=== PATIENT | female | born 1945 | race Caucasian/White ===

== ENCOUNTER 2016-07-27 15:02 | Outpatient (CLI) | payer MEDICARE | END 2016-07-27 15:03 | disposition home or self-care (01) | DX: R07.89 Other chest pain (principal) ==

== ENCOUNTER 2016-07-29 12:15 | Outpatient (CLI) | payer MEDICARE | END 2016-07-29 12:16 | disposition home or self-care (01) | DX: R07.89 Other chest pain (principal) ==

== ENCOUNTER 2016-07-30 09:34 | Outpatient (CLI) | payer MEDICARE | END 2016-07-30 09:35 | disposition home or self-care (01) | DX: Z00.00 Encounter for general adult medical examination without abnormal findings (principal); J30.2 Other seasonal allergic rhinitis; J45.909 Unspecified asthma, uncomplicated; R07.89 Other chest pain; B19.20 Unspecified viral hepatitis C without hepatic coma; K76.0 Fatty (change of) liver, not elsewhere classified; K80.20 Calculus of gallbladder without cholecystitis without obstruction; M19.90 Unspecified osteoarthritis, unspecified site; M85.80 Other specified disorders of bone density and structure, unspecified site; R73.9 Hyperglycemia, unspecified ==

== ENCOUNTER 2016-08-11 14:05 | Outpatient (CLI) | payer MEDICARE | END 2016-08-11 14:06 | disposition home or self-care (01) | DX: R91.8 Other nonspecific abnormal finding of lung field (principal) ==

== ENCOUNTER 2016-08-17 12:44 | Outpatient (CLI) | payer MEDICARE ==
--- NOTE | 2016-08-18 14:35 | Mammography Report ---
REVISED: THIS REPORT WAS ORIGINALLY SIGNED ON 08/19/2016 @ 0941 ORDERS LINKED ON 08/25/2016 DIGITAL BILATERAL DIAGNOSTIC MAMMOGRAM: 08/17/2016 CLINICAL HISTORY: A 71-year-old female who is having left breast pain. The patient has no family history of breast cancer. She has had no breast surgeries. TECHNIQUE: Craniocaudad and oblique lateral views of each breast were obtained with Hologic full field digital mammography. To complement the exam, a mediolateral view of the left breast was obtained. COMPARISON: 08/11/2006, 06/16/2009, 06/10/2010, 09/01/2011, 06/05/2014. FINDINGS: The breast parenchyma is almost entirely composed of fat. No clusters of calcification are seen. No masses are noted. Because the patient is clinically symptomatic in the left breast, recommend a left breast ultrasound to complement the present exam. LEFT BREAST ULTRASOUND: TECHNIQUE: TECHNIQUE: Real-time scanning was performed with credit and collections representative static images obtained. FINDINGS: No significant abnormality is noted in the left breast in the area of concern within the 11 o'clock position. No mass or cyst is seen. IMPRESSION: THE BREASTS APPEAR RADIOGRAPHICALLY BENIGN. THE AREA OF CONCERN IN THE LEFT BREAST AT THE 11 O'CLOCK POSITION ALSO APPEARS NEGATIVE ON ULTRASOUND. BIRADS CATEGORY 1-NEGATIVE. RECOMMENDATION: ANNUAL BILATERAL SCREENING MAMMOGRAPHY. STANDARD QUALIFYING STATEMENTS 1. This examination was reviewed with the aid of Computer-Aided Detection (CAD). 2. A negative or benign imaging report should not delay biopsy if clinically suspicious findings are present. Consider surgical consultation if warranted. More than 5% of cancers are not identified by imaging. 3. Dense breasts may obscure an underlying neoplasm. JOB #: [id number] EXT JOB #: [id number] MADHU
== END 2016-08-17 12:45 | disposition home or self-care (01) ==
LOC: DI 12:44
PROVIDERS: ATTEND Internal Medicine
DX: N64.4 Mastodynia (principal)
CPT/HCPCS: 76642; G0204; 77066

== ENCOUNTER 2016-08-23 17:02 | Outpatient (CLI) | payer MEDICARE ==
[2016-09-07 10:36] LABS: TEST RESULT REPORT (())
== END 2016-08-23 17:03 | disposition home or self-care (01) ==
LOC: LAB 17:02
PROVIDERS: ATTEND Allergy & Immunology
DX: J45.40 Moderate persistent asthma, uncomplicated (principal)
CPT/HCPCS: 36415; 81599; 86001; 86606; 86609

== ENCOUNTER 2016-09-24 09:48 | Outpatient (CLI) | payer MEDICARE ==
--- NOTE | 2016-09-26 08:47 | CT Report ---
EXAM: CT CHEST HIGH-RESOLUTION WITHOUT CONTRAST EXAM DATE: 09/24/2016 11:39 AM. CLINICAL HISTORY: Asthma, chest wall pain. COMPARISON: 07/27/2016. 02/03/2006. 08/11/2016. TECHNIQUE: High-resolution CT was performed utilizing thin section imaging in supine and prone positi on. Multiaxial helical CT imaging was performed through the chest. IV contrast: None. Reconstructions : Coronal and sagittal. In accordance with CT protocol optimization, one or more of the following dose reduction techniques w ere utilized for this exam: automated exposure control, adjustment of mA and/or KV based on patient s ize, or use of iterative reconstructive technique. FINDINGS: The posterior subpleural and peripheral lingular and left lower lobe and right lower lobe g roundglass opacities have significantly improved. There is a new right middle lobe nodular opacity wi th groundglass component measuring 6 x 5 mm (image 37, series 7). This is new compared to 08/11/2016. No endobronchial obstruction. No subpleural reticulation. Minimal linear right basilar scar/atelectasis. Mild air trapping noted. N o bronchiolectasis or evidence for honeycombing. No significant bronchial dilatation is identified. Visualized thyroid gland is unremarkable. Heart size is normal. No enlarged mediastinal or hilar lymp h nodes. Thoracic aortic calcified plaque. Included portions of the liver, adrenals, spleen, pancreas, and kidneys are unremarkable. Calcified g allstones are seen. Degenerative changes are seen in the thoracic spine. No acute osseous abnormalities. IMPRESSION: 1. Improved bilateral ground-glass opacities compared to 08/11/2016. 2. New nodular ill-defined ground-glass nodular opacity in the right middle lobe measuring 6 x 5 mm c ompared to 08/11/2016. Findings may be infectious/inflammatory in etiology. Follow-up in 3-6 months r ecommended with chest CT to assess change. 3. Mild air trapping, findings which can be seen with small airways disease. 4. Cholelithiasis. [facility] Referring Provider Line: [phone] SITE ID: [id number]
== END 2016-09-24 09:49 | disposition home or self-care (01) ==
LOC: DI 09:48
PROVIDERS: ATTEND Allergy & Immunology
DX: R91.8 Other nonspecific abnormal finding of lung field (principal); K80.20 Calculus of gallbladder without cholecystitis without obstruction
CPT/HCPCS: 71250

== ENCOUNTER 2016-10-13 10:32 | Outpatient (CLI) | payer MEDICARE ==
--- NOTE | 2016-10-14 13:32 | XRAY Report ---
THREE VIEW BILATERAL FEET: 10/13/2016 CLINICAL INDICATION: Chronic foot pain. FINDINGS: AP, lateral, and oblique views of the bilateral feet demonstrate mild degenerative changes , with plantar and posterior calcaneal spurring. There is no evidence of acute fracture or dislocatio n. No radiopaque foreign body is seen in the soft tissues. IMPRESSION: MILD OSTEOARTHRITIS. NO EVIDENCE OF ACUTE FRACTURE. JOB #: [id number] EXT JOB #:[id number]
== END 2016-10-13 10:33 | disposition home or self-care (01) ==
LOC: DI 10:32
PROVIDERS: ATTEND Podiatrist
DX: M19.072 Primary osteoarthritis, left ankle and foot (principal); M19.071 Primary osteoarthritis, right ankle and foot

== ENCOUNTER 2016-12-30 11:39 | Outpatient (CLI) | payer MEDICARE ==
--- NOTE | 2016-12-30 13:32 | CT Report ---
CT OF THE CHEST WITHOUT CONTRAST: 12/30/2016 CLINICAL INDICATION: Pulmonary eosinophilia. TECHNIQUE: Axial 1 mm prone inspiratory, supine inspiratory, supine expiratory images of the lungs we re obtained without contrast, as well as a conventional noncontrast chest CT. COMPARISON: 09/24/2016, 08/11/2016. FINDINGS: The heart and great vessels demonstrate minimal atherosclerotic calcification. No hilar or mediastinal lymphadenopathy is present. The lungs demonstrate bronchiectasis, with minimal periphera l air trapping on expiratory images. The previously seen ground-glass opacities have resolved. No int erstitial lung disease is appreciated. No effusion or pneumothorax is present. The osseous structures demonstrate degenerative changes. Limited evaluation of upper abdominal structures demonstrates norm al adrenal glands. Cholelithiasis is noted. IMPRESSION: RESOLUTION OF PREVIOUSLY SEEN GROUND-GLASS OPACITIES. BRONCHIECTASIS, WITH MILD PERIPHER AL AIR TRAPPING ON EXPIRATORY IMAGING. CHOLELITHIASIS. In accordance with CT protocol optimization, one or more of the following dose reduction techniques w ere utilized for this exam: automated exposure control, adjustment of mA and/or KV based on patient size, or use of iterative reconstructive technique. JOB #: [id number] EXT JOB #:[id number]
== END 2016-12-30 11:40 | disposition home or self-care (01) ==
LOC: DI 11:39
PROVIDERS: ATTEND Internal Medicine Critical Care Medicine
DX: J47.9 Bronchiectasis, uncomplicated (principal); K80.20 Calculus of gallbladder without cholecystitis without obstruction
CPT/HCPCS: 71250

== ENCOUNTER 2017-02-01 11:52 | Outpatient (CLI) | payer MEDICARE ==
[2017-02-02 15:07] LABS: TEST RESULT REPORT
== END 2017-02-01 11:53 | disposition home or self-care (01) ==
LOC: LAB 11:52
PROVIDERS: ATTEND Allergy & Immunology
DX: J45.40 Moderate persistent asthma, uncomplicated (principal)
CPT/HCPCS: 36415; 81599; 82785; 86003

== ENCOUNTER 2017-06-19 11:42 | Outpatient (CLI) | payer MEDICARE ==
[2017-06-19 12:06] LABS: BASOPHILS # (AUTO) 0.1 10^3/uL (0.0-0.1); BASOPHILS % (AUTO) 0.8 %; EOSINOPHILS # (AUTO) 0.2 10^3/uL (0.0-0.7); EOSINOPHILS % (AUTO) 2.1 %; HGB - HEMOGLOBIN 15.6 g/dL (12.0-16.0); LYMPHOCYTES # (AUTO) 1.3 10^3/uL (1.5-3.5); MEAN CORPUSCULAR HEMOGLOBIN 31.4 pg (27.0-31.0); MEAN CORPUSCULAR HGB CONC 34.3 g/dL (32.0-36.0); MEAN CORPUSCULAR VOLUME 91.6 fL (81.0-99.0); MEAN PLATELET VOLUME 8.2 fL (7.9-10.8); MONOCYTES % (AUTO) 12.6 %; NEUTROPHILS # (AUTO) 5.5 10^3/uL (1.5-6.6); NEUTROPHILS % (AUTO) 68.5 %; PLT - PLATELET COUNT 230 10^3/uL (130-450); RED BLOOD COUNT 4.96 10^6/uL (4.20-5.40); RED CELL DISTRIBUTION WIDTH 13.3 % (12.0-15.0)
[2017-06-19 12:23] LABS: PT - PROTHROMBIN TIME 11.5 secs (9.9-12.6)
[2017-06-19 12:28] LABS: ALBUMIN 3.8 g/dL (3.2-5.5); BILIRUBIN,DIRECT 0.2 mg/dL (0.1-0.5); BILIRUBIN,TOTAL 0.8 mg/dL (0.2-1.0); TOTAL PROTEIN 7.4 g/dL (6.7-8.2)
== END 2017-06-19 11:43 | disposition home or self-care (01) ==
LOC: LAB 11:42
PROVIDERS: ATTEND Internal Medicine
DX: B18.2 Chronic viral hepatitis C (principal); R58 Hemorrhage, not elsewhere classified
CPT/HCPCS: 36415; 80076; 82105; 85025; 85610; 85730

== ENCOUNTER 2017-06-28 09:04 | Outpatient (CLI) | payer MEDICARE ==
--- NOTE | 2017-06-28 12:45 | Ultrasound Report ---
ABDOMEN ULTRASOUND LIMITED: 06/28/2017 HISTORY: Hepatitis C, elevated AFP. COMPARISON: Abdomen ultrasound 01/12/2016. TECHNIQUE: Real-time scanning by the operations systems specialist with saved static images reviewed. FINDINGS: LIVER: Increased echogenicity with normal directional portovenous blood flow. Length: 16.1 cm. No focal pathology. GALLBLADDER: Stones. Wall thickness 1.5 mm. BILIARY TREE: Common bile duct 3.8 mm. RIGHT KIDNEY: 10.4 cm longitudinally. No hydronephrosis. Free fluid: None. IMPRESSION: CHOLELITHIASIS, WITHOUT CHOLECYSTITIS. INCREASED HEPATIC ECHOGENICITY CONSISTENT WITH FATTY INFILTRATION WITHOUT FOCAL LESIONS. TD: 06/28/2017 12:43
== END 2017-06-28 09:05 | disposition home or self-care (01) ==
LOC: DI 09:04
PROVIDERS: ATTEND Internal Medicine
DX: B19.20 Unspecified viral hepatitis C without hepatic coma (principal); K80.20 Calculus of gallbladder without cholecystitis without obstruction
CPT/HCPCS: 76705

== ENCOUNTER 2017-07-26 16:21 | Outpatient (CLI) | payer MEDICARE ==
--- NOTE | 2017-07-26 16:48 | XRAY Report ---
EXAM: CHEST RADIOGRAPHY EXAM DATE: 07/26/2017 04:34 PM. CLINICAL HISTORY: COUGH. COMPARISON: 07/27/2016. TECHNIQUE: 2 views. FINDINGS: Lungs/Pleura: No localized infiltrate, consolidation, effusion, or pneumothorax. Mediastinum: Heart and mediastinal contours are unremarkable. Other: Osteopenia, degenerative changes. IMPRESSION: No acute disease. [facility] Referring Provider Line: [phone] SITE ID: [id number]
[2017-07-26 17:14] LABS: BILIRUBIN,URINE NEGATIVE (NEGATIVE); GLUCOSE, URINE (UA) NEGATIVE (NEGATIVE); KETONES,URINE (UA) NEGATIVE (NEGATIVE); LEUKOCYTE ESTERASE, URINE NEGATIVE (NEGATIVE); NITRITE,URINE NEGATIVE (NEGATIVE); OCCULT BLOOD,URINE NEGATIVE (NEGATIVE); PROTEIN,URINE NEGATIVE (NEGATIVE); UROBILINOGEN,URINE 0.2 (NORMAL) E.U./dL (NORMAL)
[2017-07-26 17:16] LABS: CLARITY,URINE CLEAR (CLEAR)
== END 2017-07-26 16:22 | disposition home or self-care (01) ==
LOC: DI 16:21
PROVIDERS: ATTEND Internal Medicine
DX: R05 Cough (principal); R50.9 Fever, unspecified; R53.83 Other fatigue
CPT/HCPCS: 36415; 71046; 81001; 81003; 86308; 87040; 87086; 87275; 87276

== ENCOUNTER 2017-08-02 10:53 | Outpatient (CLI) | payer MEDICARE | END 2017-08-02 10:54 | disposition home or self-care (01) | LOC: LAB 10:53 | PROVIDERS: ATTEND Internal Medicine | DX: R53.83 Other fatigue (principal); M25.50 Pain in unspecified joint | CPT/HCPCS: 36415; 81599; 86617; 86618 ==

== ENCOUNTER 2018-02-19 10:55 | Outpatient (CLI) | payer MEDICARE ==
--- NOTE | 2018-02-20 08:55 | Mammography Report ---
Reason: SCREENING MAMMO Procedure Date: 02/19/2018 Accession Number: [id number] / [id number] Procedure: SHILOH - Screening Mammo w/Jhon CPT Code: FULL RESULT: EXAM: Screening Mammo w/Jhon DATE: 02/19/2018 11:53 AM CLINICAL HISTORY: 72 year-old nulliparous female presents for screening. TECHNIQUE: Bilateral CC and MLO views were obtained. COMPARISON: 08/17/2016, 06/05/2014, 09/01/2011, 06/10/2010. FINDINGS: The breasts demonstrate diffuse fatty replacement bilaterally. Coarse left breast calcifications are again seen, typically benign. No suspicious masses, clustered microcalcifications, or regions of architectural distortion are identified. IMPRESSION: Benign findings RECOMMENDATION: Routine annual screening unless otherwise clinically indicated. BIRADS CATEGORY 2: Benign findings STANDARD QUALIFYING STATEMENTS: 1. This examination was not reviewed with the aid of Computer-Aided Detection (CAD). 2. A negative or benign imaging report should not delay biopsy if clinically suspicious findings are present. Consider surgical consultation if warranted. More than 5% of cancers are not identified by imaging. 3. Dense breasts may obscure an underlying neoplasm. 4. This examination was reviewed with the aid of 3D breast imaging (tomosynthesis).
== END 2018-02-19 10:56 | disposition home or self-care (01) ==
LOC: DI 10:55
PROVIDERS: ATTEND Internal Medicine
DX: Z12.31 Encounter for screening mammogram for malignant neoplasm of breast (principal)
CPT/HCPCS: 77063; 77067

== ENCOUNTER 2018-07-10 13:53 | Outpatient (CLI) | payer MEDICARE, OTHER ==
--- NOTE | 2018-07-10 14:22 | XRAY Report ---
Reason: BONY ENLARG MEDIAL SIDE RT CALCANEUS Procedure Date: 07/10/2018 Accession Number: [id number] / [id number] Procedure: XR - Calcaneus RT CPT Code: FULL RESULT: EXAM: RIGHT CALCANEUS RADIOGRAPHY EXAM DATE: 07/10/2018 02:00 PM. CLINICAL HISTORY: Palpable bony mass right calcaneus. COMPARISON: ANKLE 3 VIEW LT 08/07/2012 2:48 PM. TECHNIQUE: 2 views. FINDINGS: Bones: No acute fracture. Large posterior calcaneal bone spur. Moderate plantar calcaneal bone spur. Joints: Normal. No subluxations. Soft Tissues: Normal. No soft tissue swelling. IMPRESSION: No acute abnormality. Large calcaneal bone spurs as described above. [facility]
== END 2018-07-10 13:54 | disposition home or self-care (01) ==
LOC: DI 13:53
PROVIDERS: ATTEND Podiatrist
DX: M77.31 Calcaneal spur, right foot (principal)

== ENCOUNTER 2018-07-27 20:39 | Emergency (ER) | payer MEDICARE, OTHER ==
[2018-07-27 20:55] LABS: BILIRUBIN,URINE NEGATIVE (NEGATIVE); GLUCOSE, URINE (UA) NEGATIVE (NEGATIVE); KETONES,URINE (UA) NEGATIVE (NEGATIVE); LEUKOCYTE ESTERASE, URINE TRACE (NEGATIVE); NITRITE,URINE NEGATIVE (NEGATIVE); OCCULT BLOOD,URINE NEGATIVE (NEGATIVE); PH,URINE 6.5 PH (5.0-7.5); PROTEIN,URINE NEGATIVE (NEGATIVE); UROBILINOGEN,URINE 0.2 (NORMAL) E.U./dL (NORMAL)
[2018-07-27 20:56] LABS: CLARITY,URINE CLEAR (CLEAR)
--- NOTE | 2018-07-27 20:57 | ED Physician Documentation ---
PD HPI FEMALE - Stated complaint Stated Complaint: FEM - Chief complaint Chief Complaint: UTI - History obtained from History obtained from: Patient - History of Present Illness Timing - onset: How many days ago (1) Timing - duration: Days (1) Timing - details: Abrupt onset, Still present Associated symptoms: Dysuria, Urinary frequency. No: Fever, Back pain, Vaginal bleeding, Vaginal discharge, Genital sore/lesion, Hematuria Contributing factors: Sexually active. No: Exposed to STD Similar symptoms before: Diagnosis (UTIs) Recently seen: Not recently seen Review of Systems Constitutional: denies: Fever, Chills : reports: Dysuria, Frequency. denies: Hematuria, Discharge Skin: denies: Rash PD PAST MEDICAL HISTORY - Past Medical History Respiratory: Asthma Musculoskeletal: Osteoarthritis, Osteoporosis - Past Surgical History Past Surgical History: Yes Ortho: Arthroscopic surgery - Present Medications Home Medications: Ambulatory Orders Medication Instructions Recorded Confirmed Albuterol [Ventolin Hfa] 2 puffs INH Q4H PRN 08/07/12 08/07/12 Azelastine HCl [Astepro] 205.5 mcg NS BID 08/07/12 08/07/12 Fluticasone Furoate [Veramyst] 1 spray NS BID 08/07/12 08/07/12 Fluticasone/Salmeterol 250/50 1 puffs INH BID 08/07/12 08/07/12 [Advair 250 Mcg/50 Mcg] Sulfamethox/Trimeth 800/160 1 each PO BID #14 tablet 07/27/18 [Bactrim Ds 800/160] - Allergies Allergies/Adverse Reactions: Allergies Allergy/AdvReac Type Severity Reaction Status Date / Time Penicillins Allergy Rash Verified 08/07/12 14:54 - Social History Does the pt smoke?: No Smoking Status: Never smoker Does the pt drink ETOH?: Yes Does the pt have substance abuse?: No PD ED PE NORMAL - Vitals Vital signs reviewed: Yes - General General: Alert and oriented X 3, Well developed/nourished - Female Female : Deferred - Back Back: No CVA TTP - Derm Derm: Normal color, Warm and dry Results - Vitals Vitals: Vital Signs - 24 hr 07/27/18 07/27/18 20:42 21:57 Temperature 36.6 C 36.2 C L Heart Rate 109 H 95 Respiratory 16 16 Rate Blood Pressure 144/102 H 155/92 H O2 Saturation 97 97 Oxygen O2 Source Room air - Labs Labs: Microbiology 07/27/18 20:49 Urine Culture - Preliminary Urine,Clean Catch Escherichia Coli Laboratory Tests 07/27/18 20:49 Urine Color YELLOW Urine Clarity CLEAR Urine pH 6.5 Ur Specific Lawrence <=1.005 Urine Protein NEGATIVE Urine Glucose (UA) NEGATIVE Urine Ketones NEGATIVE Urine Occult Blood NEGATIVE Urine Nitrite NEGATIVE Urine Bilirubin NEGATIVE Urine Urobilinogen 0.2 (NORMAL) Ur Leukocyte Esterase TRACE H Urine RBC None Seen Urine WBC >25 H Urine WBC Clumps PRESENT Ur Squamous Epith Cells NONE SEEN Urine Bacteria Rare Ur Microscopic Review INDICATED Urine Culture Comments INDICATED PD MEDICAL DECISION MAKING - ED course Complexity details: considered differential, d/w patient Departure - Departure Disposition: 01 Home, Self Care Clinical Impression: Urinary tract infection Qualifiers: Urinary tract infection type: acute cystitis Hematuria presence: without hematuria Qualified Code(s): N30.00 - Acute cystitis without hematuria Condition: Stable Record reviewed to determine appropriate education?: Yes Instructions: ED UTI Cystitis Female Follow-Up: Jennifer Jackson MD [Primary Care Provider] - Prescriptions: Sulfamethox/Trimeth 800/160 [Bactrim Ds 800/160] 1 each PO BID #14 tablet Comments: Stay well-hydrated. Tylenol or Anti-inflammatories if needed for pains or discomfort. Use phenazopyridine if needed for discomfort as well. Bactrim antibiotic twice daily as directed for the infection. Recheck if not improving over the next few days and return sooner if worse. Discharge Date/Time: 07/27/18 22:07
[2018-07-27 21:04] LABS: BACTERIA,URINE Rare /HPF (None Seen); RBC,URINE None Seen /HPF (0-5); SQUAMOUS EPITHELIAL CELL,UR NONE SEEN (<= Few); WBC CLUMPS,URINE PRESENT
[2018-07-27] MEDS ORDERED: PHENAZOPYRIDINE 100 MG TABLET PO STA (21:25)
[2018-07-27] MEDS ORDERED: NAPROXEN 250 MG TABLET PO STA (21:25)
[2018-07-27] MEDS ORDERED: SULFAMETH/TRIMETH DS 800/160 MG TABLET PO STA (21:25)
[2018-07-27 21:57] VITALS: BP 155/92
== END 2018-07-27 22:07 | disposition home or self-care (01) ==
LOC: ED 20:39
DX: N30.00 Acute cystitis without hematuria (principal)
CPT/HCPCS: 81001; 87086; 87181; 99283; A9270; 81003

== ENCOUNTER 2018-09-01 11:59 | Outpatient (CLI) | payer MEDICARE, OTHER ==
[~2018-09-01 11:59] MED LIST: GADOBUTROL 10 MMOL/10 ML VIAL ONE
[2018-09-01] MEDS: GADOBUTROL 10 MMOL/10 ML VIAL IVP ONE (12:56)
--- NOTE | 2018-09-01 14:57 | MRI Report ---
Reason: PAINFUL SOFT LESION MEDIAL CALCANEUS PAINFULL AC Procedure Date: 09/01/2018 Accession Number: [id number] / [id number] Procedure: MRI - Foot RT W/WO CPT Code: FULL RESULT: EXAM: RIGHT ANKLE/HINDFOOT MRI WITHOUT AND WITH CONTRAST EXAM DATE: 09/01/2018 01:33 PM. CLINICAL HISTORY: PAINFUL SOFT LESION MEDIAL CALCANEUS PAINFUL AC. COMPARISON: CALCANEUS RT 07/10/2018 2:00 PM. TECHNIQUE: Multiplanar, multisequence T1-weighted and fluid-sensitive sequences of the ankle before and after administration of intravenous contrast. IV contrast: . Other: None. FINDINGS: Bones: Marrow edema in the calcaneal tuberosity associated with small Tito's deformity is likely secondary to Achilles tendinopathy which will be discussed further below. Osseous structures elsewhere are unremarkable. No bony lesion. Articular Cartilage: Unremarkable. Ligaments: The anterior and posterior tibiofibular, anterior and posterior talofibular, and calcaneofibular ligaments are intact. The deep and superficial deltoid and spring ligaments are intact. Anterior Tendons: The tibialis anterior, extensor hallucis longus, and extensor digitorum longus tendons are unremarkable. Medial Tendons: The tibialis posterior, flexor digitorum longus, and flexor hallucis longus tendons are unremarkable. Lateral Tendons: There is a longitudinal split tear of the peroneus brevis tendon along the posterior margin of and immediately distal to the lateral malleolus. The peroneus longus is intact. Achilles Tendon: The distal Achilles tendon is diffusely thickened and heterogeneously increased in signal, particularly along its medial margin, and there is mild overlying soft tissue edema and a large underlying retrocalcaneal bursal effusion consistent with retrocalcaneal bursitis. Traction osteophytes extend into the substance of the distal tendon. The intrinsic Achilles tendon signal abnormality is consistent with a combination of tendinosis and partial thickness tear along the deep surface of the tendon and the other findings are likely inflammatory secondary to the tendinopathy. No high-grade tear is present and the more proximal portion of the tendon is normal. Musculature: No edema or fatty atrophy. Other: No effusions or synovitis. The contents of the sinus tarsi and tarsal tunnel are unremarkable. No plantar fasciitis. The subcutaneous tissues are unremarkable. No abscess or cellulitis. IMPRESSION: 1. No evidence of neoplasm. 2. 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 There is associated retrocalcaneal bursitis, Tito's deformity, and reactive marrow edema in the calcaneal tuberosity. 3. Longitudinal split tear of the peroneus brevis tendon along the posterior margin of and immediately distal to the lateral malleolus. [facility]
== END 2018-09-01 12:00 | disposition home or self-care (01) ==
LOC: DI 11:59
PROVIDERS: ATTEND Podiatrist
DX: M77.51 Other enthesopathy of right foot and ankle (principal); M92.61 Juvenile osteochondrosis of tarsus, right ankle; S86.311A Strain of muscle(s) and tendon(s) of peroneal muscle group at lower leg level, right leg, initial encounter
CPT/HCPCS: 73720; A9585

== ENCOUNTER 2019-01-03 09:27 | Outpatient (CLI) | payer MEDICARE, OTHER ==
--- NOTE | 2019-01-05 21:28 | Ultrasound Report ---
Reason: EPIGASTRIC PAIN, NAUSEA, HX OF GALLSTONES Procedure Date: 01/03/2019 Accession Number: [id number] / [id number] Procedure: US - Abdomen Limited CPT Code: FULL RESULT: EXAM: ABDOMEN LIMITED EXAM DATE: 01/03/2019 10:35 AM INDICATION: Epigastric pain, nausea, history of gallstones. COMPARISONS: ABDOMEN LIMITED 06/28/2017 9:32 AM. TECHNIQUE: Real-time scanning was performed with static images obtained. FINDINGS: Liver: Liver parenchyma is heterogeneous and markedly hyperechoic. No discrete liver masses or intrahepatic bile duct dilation. However, evaluation for masses is limited secondary to the echogenicity. Right liver measures 16.5 cm. Main portal vein flow: Hepatopetal. Gallbladder: Gallstone. Borderline gallbladder wall thickening. Per report, the patient had right upper quadrant pain with imaging. No pericholecystic fluid. Biliary System: CBD measures 6.5 mm. No intrahepatic or extrahepatic ductal dilatation. Pancreas: Not well evaluated. Right kidney: 10.5 cm. No hydronephrosis. Abdominal aorta and IVC: Normal. Other: None. IMPRESSION: 1. Gallstone. Borderline gallbladder wall thickening. Per report, the patient had right upper quadrant pain during imaging. No pericholecystic fluid. If clinical suspicion persists for acute cholecystitis, recommend nuclear medicine hepatobiliary study. 2. Normal common bile duct. 3. Echogenic fatty liver. No mass. [facility]
== END 2019-01-03 09:28 | disposition home or self-care (01) ==
LOC: DI 09:27
PROVIDERS: ATTEND Internal Medicine
DX: R10.13 Epigastric pain (principal); R11.0 Nausea; K76.0 Fatty (change of) liver, not elsewhere classified
CPT/HCPCS: 76705

== ENCOUNTER 2019-02-07 14:55 | Outpatient (CLI) | payer MEDICARE, OTHER ==
--- NOTE | 2019-02-08 14:05 | Mammography Report ---
Reason: ROUTINE MAMMO Procedure Date: 02/07/2019 Accession Number: [id number] / [id number] Procedure: SHILOH - Screening Mammo w/Jhon CPT Code: Final Report FULL RESULT: EXAM: Screening Mammo w/Jhon DATE: 02/07/2019 3:23 PM CLINICAL HISTORY: Routine screening. No reported personal or family history of breast cancer. TECHNIQUE: (B) - Bilateral CC and MLO views were obtained. COMPARISON: 02/19/2018 through 06/05/2014. PARENCHYMAL PATTERN: (A) - The breasts demonstrate scattered fibroglandular densities bilaterally. FINDINGS: Bilateral breasts: There are no suspicious masses, calcifications, or areas of distortion. IMPRESSION: Negative examination. BI-RADS category 1. RECOMMENDATION: (ANNUAL) - Recommend routine annual screening mammography. BI-RADS CATEGORY: (1) - Negative. STANDARD QUALIFYING STATEMENTS: 1. This examination was not reviewed with the aid of Computer-Aided Detection (CAD). 2. A negative or benign imaging report should not preclude biopsy if clinically suspicious findings are present. 3. Dense breasts may obscure an underlying neoplasm. 4. This examination was reviewed with the aid of 3D breast imaging (tomosynthesis).
== END 2019-02-07 14:56 | disposition home or self-care (01) ==
LOC: DI 14:55
PROVIDERS: ATTEND Internal Medicine
DX: Z12.31 Encounter for screening mammogram for malignant neoplasm of breast (principal)
CPT/HCPCS: 77063; 77067

== ENCOUNTER 2019-03-09 10:00 | Outpatient (CLI) | payer MEDICARE, OTHER ==
--- NOTE | 2019-03-10 14:13 | MRI Report ---
Reason: RE-INJURY TO PERONEAL TENDONS AND ACHILLES TENDON Procedure Date: 03/09/2019 Accession Number: [id number] / [id number] Procedure: MRI - Ankle RT W/O CPT Code: Final Report FULL RESULT: EXAM: RIGHT ANKLE/HINDFOOT MRI WITHOUT CONTRAST EXAM DATE: 03/09/2019 11:15 AM. CLINICAL HISTORY: Re-injury to peroneal tendons and achilles tendon. Posterior ankle pain and instability. COMPARISON: 09/01/2018 MRI, radiograph 07/10/2018. TECHNIQUE: Multiplanar, multisequence T1-weighted and fluid-sensitive sequences of the ankle/hindfoot without contrast. Other: None. FINDINGS: Bones: No fractures. Some mild marrow edema is in the posterior portion of the calcaneus. Articular Cartilage: Unremarkable. Ligaments: The anterior and posterior tibiofibular, anterior and posterior talofibular, and calcaneofibular ligaments are intact. The deep and superficial deltoid and spring ligaments are intact. Anterior Tendons: The tibialis anterior, extensor hallucis longus, and extensor digitorum longus tendons are unremarkable. Medial Tendons: The tibialis posterior, flexor digitorum longus, and flexor hallucis longus tendons are unremarkable. Lateral Tendons: The small peroneus brevis longitudinal tear near the distal lateral malleolus is unchanged. The peroneus longus tendon is normal. Achilles Tendon: The distal Achilles tendon is severely thickened with tear of the anterior third of the tendon. Retraction is on the order of 7 mm. There is edema in the distal tendon with prominent calcification. The adjacent retrocalcaneal bursitis has decreased. Musculature: No edema or fatty atrophy. Other: No effusions. The contents of the sinus tarsi and tarsal tunnel are unremarkable. No plantar fasciitis. The subcutaneous tissues are unremarkable. IMPRESSION: 1. Unchanged focal longitudinal tear of the peroneus brevis tendon. 2. The Achilles calcific tendinosis and partial tearing is unchanged. The adjacent retrocalcaneal bursitis and reactive marrow edema in the calcaneus has improved. [facility]
== END 2019-03-09 10:01 | disposition home or self-care (01) ==
LOC: DI 10:00
PROVIDERS: ATTEND Podiatrist
DX: S96.811A Strain of other specified muscles and tendons at ankle and foot level, right foot, initial encounter (principal); M76.61 Achilles tendinitis, right leg

== ENCOUNTER 2019-09-06 13:16 | Outpatient (CLI) | payer OTHER, MEDICARE ==
[2019-09-06 13:31] LABS: HGB - HEMOGLOBIN 15.1 g/dL (12.0-16.0); MEAN CORPUSCULAR HEMOGLOBIN 30.7 pg (27.0-31.0); MEAN CORPUSCULAR HGB CONC 33.6 g/dL (32.0-36.0); MEAN CORPUSCULAR VOLUME 91.3 fL (81.0-99.0); RED BLOOD COUNT 4.92 10^6/uL (4.20-5.40); WHITE BLOOD COUNT 7.4 x10^3/uL (4.8-10.8)
[2019-09-06 13:45] LABS: ALBUMIN 3.8 g/dL (3.2-5.5); BILIRUBIN,TOTAL 0.8 mg/dL (0.2-1.0); CALCIUM 9.3 mg/dL (8.5-10.3); CREATININE 0.7 mg/dL (0.4-1.0); TOTAL PROTEIN 7.6 g/dL (6.7-8.2)
== END 2019-09-06 13:17 | disposition home or self-care (01) ==
LOC: LAB 13:16
PROVIDERS: ATTEND Physician Assistant Medical
DX: B18.2 Chronic viral hepatitis C (principal)
CPT/HCPCS: 36415; 80053; 85027

== ENCOUNTER 2020-01-18 11:59 | Outpatient (CLI) | payer OTHER, MEDICARE | END 2020-01-18 12:00 | disposition home or self-care (01) | LOC: LAB 11:59 | PROVIDERS: ATTEND Ophthalmology | DX: Z20.828 Contact with and (suspected) exposure to other viral communicable diseases (principal) ==

== ENCOUNTER 2020-08-20 15:40 | Outpatient (CLI) | payer OTHER, MEDICARE ==
--- NOTE | 2020-08-20 16:22 | XRAY Report ---
PROCEDURE: Chest 4 Views X-Ray INDICATIONS: ASTHAM, MODERATE PERSISTENT, W/ EXACERBATION TECHNIQUE: 4 views of the chest were acquired. COMPARISON: None. FINDINGS: Surgical changes and devices: None. Lungs and pleura: No pleural effusions or pneumothorax. Lungs are clear. Mediastinum: Mediastinal contours are normal. Heart size is normal. Bones and chest wall: No suspicious bony abnormalities. Soft tissues appear unremarkable. IMPRESSION: No acute process. Reviewed by: Holli Tam MD on 08/20/2020 4:20 PM PDT Approved by: Holli Tam MD on 08/20/2020 4:20 PM PDT Station ID: [id number]
== END 2020-08-20 15:41 | disposition home or self-care (01) ==
LOC: DI 15:40
DX: J45.41 Moderate persistent asthma with (acute) exacerbation (principal)

== ENCOUNTER 2020-08-24 15:35 | Emergency (ER) | payer OTHER, MEDICARE ==
--- OUTSIDE RECORDS SUMMARY | 2020-08-24 15:38 | EXTERNAL MEDICAL SUMMARY RPT | Continuity of Care Document ---
:1945 Demographics Phone Unavailable Preferred Language Unknown Marital Status Unknown Hoahaoism Affiliation Unknown Race Unknown Ethnic Group Unknown Author Organization [place] Address [address] [phone] Phone Allergies Encounters Medications Problems date description facility [phone] [facility] Results
--- OUTSIDE RECORDS SUMMARY | 2020-08-24 16:06 | EXTERNAL MEDICAL SUMMARY RPT | Continuity of Care Document ---
:1945 Demographics Phone Unavailable Preferred Language Unknown Marital Status Unknown Sikhism Affiliation Unknown Race Unknown Ethnic Group Unknown Author Organization [facility] Address [address] [phone] Phone Allergies Encounters Medications Problems date description facility [id number] [facility] [employer] Results
[2020-08-24] MEDS ORDERED: oxyCODONE 5 MG TABLET PO STA (16:12)
[2020-08-24] MEDS ORDERED: ONDANSETRON ODT 4 MG TABLET TL STA (16:12)
--- NOTE | 2020-08-24 16:24 | ED Physician Documentation ---
History of Present Illness - Stated complaint Stated Complaint: FALL - Chief complaint Chief Complaint: Laceration - History obtained from History obtained from: Patient, Family - History of Present Illness Timing: Today Pain level max: 8 Pain level now: 4 - Additonal information Additional information: 75-year-old female presents to the emergency department after a trip and fall earlier today. She sustained skin tears to the bilateral knees, left sheikh and left elbow. Bandaged with Steri-Strips at home. Tetanus shot is up-to-date. No head, neck, back pain. Has chronic left knee pain. Took a dose of oxycodone prior to arrival. 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 : None HEENT: None Psych: None Musculoskeletal: Osteoarthritis, Osteoporosis Derm: None - Past Surgical History Past Surgical History: Yes Ortho: Arthroscopic surgery - Present Medications Home Medications: Ambulatory Orders Medication Instructions Recorded Confirmed Albuterol [Ventolin Hfa] 2 puffs INH Q4H PRN 08/07/12 08/24/20 Azelastine HCl [Astepro] 205.5 mcg NS BID 08/07/12 08/24/20 Fluticasone Furoate [Veramyst] 1 spray NS BID 08/07/12 08/24/20 Acetaminophen [Tylenol] 650 mg PO Q6H PRN 08/24/20 08/24/20 Albuterol 2.5 mg INH Q6HR PRN 08/24/20 08/24/20 Cholecalciferol (Vitamin D3) 2,000 unit PO DAILY 08/24/20 08/24/20 [Vitamin D3] Doxycycline Hyclate 100 mg PO BID #20 08/24/20 Famotidine [Pepcid] 20 mg PO DAILY 08/24/20 08/24/20 Fluticasone/Salmeterol [Advair 1 each IH BID 08/24/20 08/24/20 500-50 Diskus] Ibuprofen 400 mg PO Q6HR PRN 08/24/20 08/24/20 Lactobacillus Acidophilus 1 each PO DAILY 08/24/20 08/24/20 [Probiotic Acidophilus] Montelukast [Singulair] 10 mg PO QPM 08/24/20 08/24/20 Multivitamin/Iron/Folic Acid 1 each PO DAILY 08/24/20 08/24/20 [Centrum Women Tablet] Ondansetron Odt [Zofran] 4 mg TL Q6H PRN #20 tablet 08/24/20 Tiotropium [place] [Spiriva 2 spray IN DAILY 08/24/20 08/24/20 Respimat] - Allergies Allergies/Adverse Reactions: Allergies Allergy/AdvReac Type Severity Reaction Status Date / Time cephalexin [From Keflex] Allergy Anaphylaxis Verified 08/24/20 15:41 levofloxacin Allergy Cramps Verified 08/24/20 15:41 Penicillins Allergy Rash Verified 08/24/20 15:41 - Social History Does the pt smoke?: No Smoking Status: Never smoker Does the pt drink ETOH?: Yes Does the pt have substance abuse?: No - Immunizations Immunizations are current?: Yes PD ED PE NORMAL - Vitals Vital signs reviewed: Yes - General General: Alert and oriented X 3, No acute distress - HEENT HEENT: Atraumatic, PERRL, Moist mucous membranes - Neck Neck: Supple, no meningeal sign, No bony TTP - Cardiac Cardiac: RRR - Respiratory Respiratory: No respiratory distress, Clear bilaterally - Derm Derm: Warm and dry - Neuro Neuro: Alert and oriented X 3, combination presser 2-12 intact, No motor deficit, No sensory deficit, Normal speech Eye Opening: Spontaneous Motor: Obeys Commands Verbal: Oriented GCS Score: 15 - Psych Psych: Normal mood, Normal affect - Free text exam Free text exam: Several large skin tears, the first is on the lateral aspect of the left elbow, 8 x 4 cm. The second Is over the right knee, approximately 5 x 3 cm. The left knee has a 5 x 3 cm skin avulsion as well. The left anterior tibia has approximately 12 x 5 cm skin avulsion. Results - Vitals Vitals: Vital Signs - 24 hr 08/24/20 08/24/20 15:41 18:12 Temperature 36.5 C 37.0 C Heart Rate 68 58 L Respiratory 16 18 Rate Blood Pressure 181/78 H 156/65 H O2 Saturation 96 98 Oxygen O2 Source Room air PD MEDICAL DECISION MAKING - ED course Complexity details: reviewed results, re-evaluated patient, considered differential, d/w patient ED course: Let was applied topically to the wounds. These were then cleansed and Mepitel was applied to hold the wound edges together. There is no suturable areas. She is allergic to cephalexin, therefore we will place on doxycycline. She may need wound care. Wound care instructions given at bedside. Her is a RN. We will prescribe antibiotics for home as well. Patient and family counseled regarding signs and symptoms for which I believe and urgent re-evaluation would be necessary. Patient with good understanding of and agreement to plan and is comfortable going home at this time This document was made in part using voice recognition software. While efforts are made to proofread this document, sound alike and grammatical errors may occur. Departure - Departure Disposition: 01 Home, Self Care Clinical Impression: Skin tear Condition: Good Instructions: ED Laceration All Follow-Up: Jennifer Jackson MD [Primary Care Provider] - Within 1 week Prescriptions: Doxycycline Hyclate 100 mg PO BID #20 Ondansetron Odt [Zofran] 4 mg TL Q6H PRN #20 tablet PRN Reason: Nausea / Vomiting Comments: Follow-up with your doctor for further care. Return if you worsen. Keep the wounds clean. The Mepitel should stay in place for about 10 days. You can change the overlying bandages. Return for redness, swelling or drainage from the wounds. Discharge Date/Time: 08/24/20 18:13
[2020-08-24] MEDS ORDERED: LIDOCAINE-EPINEPH-TETRACAINE 3 ML SYRINGE TOP STA (16:36)
[2020-08-24] MEDS ORDERED: BACITRACIN ZINC OINT 1 PACKET TOP STA ×2 (16:36→16:45)
[2020-08-24 18:12] VITALS: BP 156/65
== END 2020-08-24 18:13 | disposition home or self-care (01) ==
LOC: ED 15:35
DX: S81.012A Laceration without foreign body, left knee, initial encounter (principal); S81.011A Laceration without foreign body, right knee, initial encounter; S51.012A Laceration without foreign body of left elbow, initial encounter; S81.812A Laceration without foreign body, left lower leg, initial encounter; W18.30XA Fall on same level, unspecified, initial encounter
CPT/HCPCS: 99282; 99284; A9270; Q0162

== ENCOUNTER 2021-01-15 11:13 | Outpatient (CLI) | payer OTHER, MEDICARE ==
--- NOTE | 2021-01-18 10:16 | Mammography Report ---
BILATERAL DIGITAL SCREENING MAMMOGRAM 3D/2D: 01/15/2021 CLINICAL: Routine screening. Comparison is made to exams dated: 02/07/2019 mammogram, 02/19/2018 mammogram, 08/17/2016 mammogram, 08/17/2016 ultrasound, and 06/05/2014 mammogram - [facility]. There are scattered fi broglandular elements in both breasts. No significant masses, calcifications, or other findings are seen in either breast. There has been no significant interval change. IMPRESSION: NEGATIVE There is no mammographic evidence of malignancy. A 1 year screening mammogram is recommended. This exam was interpreted at Station ID: [id number]. NOTE: For mammograms, a report in lay terms will be sent to the patient. Approximately 15% of breast malignancies will not be visualized mammographically. In the management of a palpable breast mass, a negative mammogram must not discourage biopsy of a clinically suspicious lesion. Electronically Signed By: Todd Prieto M.D. slc/penrad:01/15/2021 12:31:02 ACR BI-RADS Category 1: Negative 3341F PARENCHYMAL PATTERN: (A) - The breast(s) demonstrate(s) scattered fibroglandular densities. BI-RADS CATEGORY: (1) - 1 RECOMMENDATION: (ANNUAL) - Recommend routine annual screening mammography. [id number] 1 year screening LATERALITY: (B)
== END 2021-01-15 11:14 | disposition home or self-care (01) ==
LOC: DI 11:13
PROVIDERS: ATTEND Internal Medicine
DX: Z12.31 Encounter for screening mammogram for malignant neoplasm of breast (principal)

== ENCOUNTER 2021-02-20 11:15 | Emergency (ER) | payer MEDICARE, OTHER ==
[2021-02-20 11:29] VITALS: BP 146/84
--- NOTE | 2021-02-20 11:41 | ED Physician Documentation ---
History of Present Illness - Stated complaint Stated Complaint: FEMALE - Chief complaint Chief Complaint: UTI - Additonal information Additional information: 75-year-old female presents to the emergency department for acute onset dysuria urgency and frequency that began this morning. States she has had UTIs through the years and this feels very similar. No flank pain fevers or vomiting. Denies any history of pyelonephritis or renal colic. No recent sexual activity. Last urinary tract infection in September 2019. Denies diabetes. No history of coronary artery disease. Denies chest pain shortness of air. Multiple medication allergies including cephalosporins penicillins and fluoroquinolones. Reports Bactrim typically works well. Review of Systems Constitutional: denies: Fever, Chills Eyes: reports: Reviewed and negative Ears: reports: Reviewed and negative Nose: reports: Reviewed and negative Throat: reports: Reviewed and negative Cardiac: reports: Reviewed and negative Respiratory: reports: Reviewed and negative GI: reports: Reviewed and negative : reports: Dysuria, Frequency. 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 : None HEENT: None Psych: None Musculoskeletal: Osteoarthritis, Osteoporosis Derm: None - Past Surgical History Past Surgical History: Yes Ortho: Arthroscopic surgery - Present Medications Home Medications: Ambulatory Orders Medication Instructions Recorded Confirmed Albuterol [Ventolin Hfa] 2 puffs INH Q4H PRN 08/07/12 08/24/20 Azelastine HCl [Astepro] 205.5 mcg NS BID 08/07/12 08/24/20 Fluticasone Furoate [Veramyst] 1 spray NS BID 08/07/12 08/24/20 Acetaminophen [Tylenol] 650 mg PO Q6H PRN 08/24/20 08/24/20 Albuterol 2.5 mg INH Q6HR PRN 08/24/20 08/24/20 Cholecalciferol (Vitamin D3) 2,000 unit PO DAILY 08/24/20 08/24/20 [Vitamin D3] Doxycycline Hyclate 100 mg PO BID #20 08/24/20 Famotidine [Pepcid] 20 mg PO DAILY 08/24/20 08/24/20 Fluticasone/Salmeterol [Advair 1 each IH BID 08/24/20 08/24/20 500-50 Diskus] Ibuprofen 400 mg PO Q6HR PRN 08/24/20 08/24/20 Lactobacillus Acidophilus 1 each PO DAILY 08/24/20 08/24/20 [Probiotic Acidophilus] Montelukast [Singulair] 10 mg PO QPM 08/24/20 08/24/20 Multivitamin/Iron/Folic Acid 1 each PO DAILY 08/24/20 08/24/20 [Centrum Women Tablet] Ondansetron Odt [Zofran] 4 mg TL Q6H PRN #20 tablet 08/24/20 Tiotropium [place] [Spiriva 2 spray IN DAILY 08/24/20 08/24/20 Respimat] Phenazopyridine HCl [Pyridium] 200 mg PO TID PRN #6 tablet 02/20/21 Sulfamethox/Trimeth 800/160 1 each PO BID #14 tablet 02/20/21 [Bactrim Ds 800/160] - Allergies Allergies/Adverse Reactions: Allergies Allergy/AdvReac Type Severity Reaction Status Date / Time cephalexin [From Keflex] Allergy Anaphylaxis Verified 02/20/21 11:30 levofloxacin Allergy Cramps Verified 02/20/21 11:30 Penicillins Allergy Rash Verified 02/20/21 11:30 - Social History Does the pt smoke?: No Smoking Status: Never smoker Does the pt drink ETOH?: Yes Does the pt have substance abuse?: No - Immunizations Immunizations are current?: Yes PD ED PE EXPANDED - General General: Alert, No acute distress - Cardiac Cardiac: Regular Rate, Radial strong equal, Cap refill < 2 sec - Respiratory Respiratory: Clear to ausultation augustine. No: Distress, Labored - Abdomen Abdomen: Normal Bowel sounds. No: Tender to palpation - Back Back: Normal exam - Derm Derm: Normal color, Warm and dry. No: Rash - Neuro Neuro: Alert and Oriented X 3. No: Confused, Disoriented - GCS Eye Opening: Spontaneous Motor: Obeys Commands Verbal: Oriented Total: 15 Results - Vitals Vitals: Vital Signs - 24 hr 02/20/21 11:24 Temperature 36.8 C Heart Rate 88 Respiratory 16 Rate Blood Pressure 146/84 H O2 Saturation 99 Oxygen O2 Source Room air - Labs Labs: Laboratory Tests 02/20/21 11:30 Urine Color YELLOW Urine Clarity HAZY Urine pH 7.0 Ur Specific [place] 1.015 Urine Protein NEGATIVE Urine Glucose (UA) NEGATIVE Urine Ketones NEGATIVE Urine Occult Blood SMALL H Urine Nitrite NEGATIVE Urine Bilirubin NEGATIVE Urine Urobilinogen 0.2 (NORMAL) Ur Leukocyte Esterase SMALL H Urine RBC 6-10 H Urine WBC 11-25 H Ur Epithelial Cells RARE Renal Tubular Ur Squamous Epith Cells RARE Squamous Urine Bacteria Moderate H Ur Microscopic Review INDICATED Urine Culture Comments INDICATED PD MEDICAL DECISION MAKING - ED course Complexity details: reviewed results, considered differential ED course: 75-year-old female presents with acute dysuria urgency and frequency that began this a.m. Similar to previous UTIs in the past. No flank pain fevers or vomiting. UA is consistent with infection. No clinical findings to suggest a sending infection or pyelonephritis. She does have multiple antibiotic allergies including cephalosporins as well as fluoroquinolones. We will send a prescription for Bactrim. Emergent worrisome return precautions discussed. Departure - Departure Disposition: 01 Home, Self Care Clinical Impression: Acute cystitis Qualifiers: Hematuria presence: with hematuria Qualified Code(s): N30.01 - Acute cystitis with hematuria Condition: Stable Record reviewed to determine appropriate education?: Yes Instructions: ED UTI Cystitis Female Follow-Up: Jennifer Jackson MD [Primary Care Provider] - Prescriptions: Sulfamethox/Trimeth 800/160 [Bactrim Ds 800/160] 1 each PO BID #14 tablet Phenazopyridine HCl [Pyridium] 200 mg PO TID PRN #6 tablet PRN Reason: dysuria Comments: Your urine shows that you do have an infection today. Please fill the prescription for the Bactrim and begin taking as directed. I have also sent a prescription for Pyridium to the pharmacy. This should help with the bladder pain and spasm. It will cause her urine to turn bright orange. If your symptoms are not improving after 48 hours of antibiotics, you develop fevers, have abdominal pain or uncontrolled vomiting then please return to the ER for second evaluation.
[2021-02-20 12:04] LABS: BILIRUBIN,URINE NEGATIVE (NEGATIVE); GLUCOSE, URINE (UA) NEGATIVE (NEGATIVE); KETONES,URINE (UA) NEGATIVE (NEGATIVE); LEUKOCYTE ESTERASE, URINE SMALL (NEGATIVE); NITRITE,URINE NEGATIVE (NEGATIVE); OCCULT BLOOD,URINE SMALL (NEGATIVE); PROTEIN,URINE NEGATIVE (NEGATIVE); UROBILINOGEN,URINE 0.2 (NORMAL) E.U./dL (NORMAL)
[2021-02-20 12:06] LABS: CLARITY,URINE HAZY (CLEAR)
[2021-02-20 12:11] LABS: BACTERIA,URINE Moderate /HPF (None Seen); EPITHELIAL CELLS,UR RARE Renal Tubular /HPF (<= Few); SQUAMOUS EPITHELIAL CELL,UR RARE Squamous (<= Few)
== END 2021-02-20 12:23 | disposition home or self-care (01) ==
LOC: ED 11:15
DX: N30.01 Acute cystitis with hematuria (principal); Z88.0 Allergy status to penicillin; Z88.1 Allergy status to other antibiotic agents
CPT/HCPCS: 81001; 81003; 87086; 87181; 99283

== ENCOUNTER 2021-05-21 16:46 | Outpatient (CLI) | payer MEDICARE, OTHER ==
--- NOTE | 2021-05-21 19:13 | Ultrasound Report ---
PROCEDURE: Head or Neck Soft Tissue INDICATIONS: SWELLING LEFT NECK AND SHOULDER TECHNIQUE: Real time scanning was performed of the neck region of interest, with image documentation . COMPARISON: None. FINDINGS: A 4.3 x 4.3 x 3.3 mm echogenic focus is seen in the left mid neck, which may reflect a lymp h node. An ovoid isoechoic lesion is seen inferior to the left clavicle, measuring 5.6 x 4.4 x 1.3 cm, which does not demonstrate internal vascularity and may represent a lipoma. IMPRESSION: 1. Isoechoic, ovoid lesion, inferior to the left clavicle as detailed above, most consistent with a l ipoma. Reviewed by: Craig Malone MD on 05/21/2021 7:12 PM PST Approved by: Craig Malone MD on 05/21/2021 7:12 PM PST Station ID: [id number]
== END 2021-05-21 16:47 | disposition home or self-care (01) ==
LOC: DI 16:46
PROVIDERS: ATTEND Internal Medicine
DX: R22.2 Localized swelling, mass and lump, trunk (principal); R22.1 Localized swelling, mass and lump, neck

== ENCOUNTER 2021-11-26 12:38 | Outpatient (CLI) | payer MEDICARE, OTHER ==
--- NOTE | 2021-11-26 13:16 | XRAY Report ---
PROCEDURE: Chest 2 View X-Ray INDICATIONS: CHRONIC COUGH TECHNIQUE: 2 view(s) of the chest. COMPARISON: None. FINDINGS: Surgical changes and devices: None. Lungs and pleura: No pleural effusions or pneumothorax. Lungs are clear. Mediastinum: Mediastinal contours are normal. Heart size is normal. Bones and chest wall: No suspicious bony abnormalities. Soft tissues appear unremarkable. IMPRESSION: No acute cardiopulmonary findings. Reviewed by: Clau Sarkar MD on 11/26/2021 1:15 PM PDT Approved by: Clau Sarkar MD on 11/26/2021 1:15 PM PDT Station ID: [id number]
== END 2021-11-26 12:39 | disposition home or self-care (01) ==
LOC: DI 12:38
PROVIDERS: ATTEND Internal Medicine
DX: R05.3 Chronic cough (principal); R60.9 Edema, unspecified
CPT/HCPCS: 36415; 83880

== ENCOUNTER 2022-05-12 11:31 | Outpatient (CLI) | payer MEDICARE, OTHER | END 2022-05-12 11:32 | disposition home or self-care (01) | LOC: RT 11:31 | PROVIDERS: ATTEND Orthopaedic Surgery Foot and Ankle Surgery | DX: Z01.818 Encounter for other preprocedural examination (principal) | CPT/HCPCS: 93005 ==

== ENCOUNTER 2022-06-05 12:24 | Outpatient (CLI) | payer MEDICARE, OTHER ==
[2022-06-05 13:27] LABS: BILIRUBIN,URINE NEGATIVE (NEGATIVE); GLUCOSE, URINE (UA) NEGATIVE (NEGATIVE); KETONES,URINE (UA) NEGATIVE (NEGATIVE); LEUKOCYTE ESTERASE, URINE NEGATIVE (NEGATIVE); NITRITE,URINE NEGATIVE (NEGATIVE); OCCULT BLOOD,URINE NEGATIVE (NEGATIVE); PROTEIN,URINE NEGATIVE (NEGATIVE); UROBILINOGEN,URINE 0.2 (NORMAL) E.U./dL (NORMAL)
[2022-06-05 13:39] LABS: CALCIUM 9.3 mg/dL (8.5-10.3); CREATININE 0.9 mg/dL (0.4-1.0)
[2022-06-05 13:41] LABS: CLARITY,URINE CLEAR (CLEAR)
[2022-06-05 14:15] LABS: ESTIMATED AVERAGE GLUCOSE 94 mg/dL (70-100); HEMOGLOBIN A1c% 4.9 % (4.27-6.07)
== END 2022-06-05 12:25 | disposition home or self-care (01) ==
LOC: LAB 12:24
PROVIDERS: ATTEND Orthopaedic Surgery Foot and Ankle Surgery
DX: Z01.812 Encounter for preprocedural laboratory examination (principal); R73.9 Hyperglycemia, unspecified; N39.0 Urinary tract infection, site not specified
CPT/HCPCS: 36415; 80048; 81001; 81003; 83036; 87086

== ENCOUNTER 2022-06-10 16:33 | Outpatient (CLI) | payer MEDICARE, OTHER ==
[2022-06-10 16:48] LABS: BASOPHILS # (AUTO) 0.1 10^3/uL (0.0-0.1); BASOPHILS % (AUTO) 0.6 %; EOSINOPHILS # (AUTO) 0.2 10^3/uL (0.0-0.7); EOSINOPHILS % (AUTO) 2.2 %; HCT - HEMATOCRIT 41.4 % (37.0-47.0); HGB - HEMOGLOBIN 13.5 g/dL (12.0-16.0); LYMPHOCYTES # (AUTO) 1.6 10^3/uL (1.5-3.5); LYMPHOCYTES % (AUTO) 19.4 %; MEAN CORPUSCULAR HEMOGLOBIN 30.9 pg (27.0-31.0); MEAN CORPUSCULAR HGB CONC 32.6 g/dL (32.0-36.0); MEAN CORPUSCULAR VOLUME 94.7 fL (81.0-99.0); MONOCYTES % (AUTO) 11.5 %; NEUTROPHILS # (AUTO) 5.5 10^3/uL (1.5-6.6); NEUTROPHILS % (AUTO) 65.9 %; PLT - PLATELET COUNT 235 10^3/uL (130-450); RED BLOOD COUNT 4.37 10^6/uL (4.20-5.40); RED CELL DISTRIBUTION WIDTH 12.8 % (12.0-15.0); WHITE BLOOD COUNT 8.3 x10^3/uL (4.8-10.8)
== END 2022-06-10 16:34 | disposition home or self-care (01) ==
LOC: LAB 16:33
PROVIDERS: ATTEND Orthopaedic Surgery Foot and Ankle Surgery
DX: Z01.812 Encounter for preprocedural laboratory examination (principal)
CPT/HCPCS: 36415; 85025

== ENCOUNTER 2022-07-16 12:09 | Emergency (ER) | payer MEDICARE, OTHER ==
[2022-07-16] MEDS ORDERED: SODIUM CHLORIDE 0.9% 1,000 ML IV STA ×2 (12:42)
[2022-07-16] MEDS ORDERED: HYDROmorphone 1 MG/ML CARPUJECT IVP STA (12:42)
--- NOTE | 2022-07-16 12:56 | ED Physician Documentation ---
History of Present Illness - Stated complaint Stated Complaint: ALLTERED CONSCIOUS - Chief complaint Chief Complaint: Neuro - History obtained from History obtained from: Patient, Family - History of Present Illness Pain level max: 8 Pain level now: 6 - Additonal information Additional information: Patient is a 77-year-old female brought in by her . She had a partial knee replacement on July 03 at [facility] with [facility]. She has had continued pain in the knee. Saw her surgeon a few days ago, the dressings were removed and did not show any evidence of infection. She has been having more difficulty getting to the bathroom at home, therefore has been wearing depends. Last night she felt feverish and had shaking chills. Today she has been very tired, states increasing fatigue and states that she feels "foggy". No abdominal pain. Has a mild dry cough. She also had 1 episode of emesis last night. Nonbloody. No diarrhea. No constipation. She has had UTIs in the past which feels similar. 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 : None HEENT: None Psych: None Musculoskeletal: Osteoarthritis, Osteoporosis Derm: None - Past Surgical History Past Surgical History: Yes Ortho: Arthroscopic surgery - Present Medications Home Medications: Ambulatory Orders Medication Instructions Recorded Confirmed Albuterol [Ventolin Hfa] 2 puffs INH Q4H PRN 08/07/12 08/24/20 Azelastine HCl [Astepro] 205.5 mcg NS BID 08/07/12 08/24/20 Fluticasone Furoate [Veramyst] 1 spray NS BID 08/07/12 08/24/20 Acetaminophen [Tylenol] 650 mg PO Q6H PRN 08/24/20 08/24/20 Albuterol 2.5 mg INH Q6HR PRN 08/24/20 08/24/20 Cholecalciferol (Vitamin D3) 2,000 unit PO DAILY 08/24/20 08/24/20 [Vitamin D3] Famotidine [Pepcid] 20 mg PO DAILY 08/24/20 08/24/20 Fluticasone/Salmeterol [Advair 1 each IH BID 08/24/20 08/24/20 500-50 Diskus] Ibuprofen 400 mg PO Q6HR PRN 08/24/20 08/24/20 Lactobacillus Acidophilus 1 each PO DAILY 08/24/20 08/24/20 [Probiotic Acidophilus] Montelukast [Singulair] 10 mg PO QPM 08/24/20 08/24/20 Multivitamin/Iron/Folic Acid 1 each PO DAILY 08/24/20 08/24/20 [Centrum Women Tablet] Ondansetron Odt [Zofran] 4 mg TL Q6H PRN #20 tablet 08/24/20 Tiotropium [place] [Spiriva 2 spray IN DAILY 08/24/20 08/24/20 Respimat] Phenazopyridine HCl [Pyridium] 200 mg PO TID PRN #6 tablet 02/20/21 Sulfamethox/Trimeth 800/160 1 each PO BID #14 tablet 02/20/21 [Bactrim Ds 800/160] HYDROmorphone [Dilaudid] 2 mg PO Q6H PRN #10 tablet 07/16/22 Sulfamethox/Trimeth 800/160 1 each PO BID #14 tablet 07/16/22 [Bactrim Ds 800/160] - Allergies Allergies/Adverse Reactions: Allergies Allergy/AdvReac Type Severity Reaction Status Date / Time cephalexin [From Keflex] Allergy Anaphylaxis Verified 02/20/21 11:30 levofloxacin Allergy Cramps Verified 02/20/21 11:30 Penicillins Allergy Rash Verified 02/20/21 11:30 - Social History Does the pt smoke?: No Smoking Status: Never smoker Does the pt drink ETOH?: Yes Does the pt have substance abuse?: No - Immunizations Immunizations are current?: Yes PD ED PE NORMAL - Vitals Vital signs reviewed: Yes - General General: Alert and oriented X 3, No acute distress, Well developed/nourished - HEENT HEENT: PERRL, Moist mucous membranes, Pharynx benign - Neck Neck: Supple, no meningeal sign - Cardiac Cardiac: RRR, Strong equal pulses - Respiratory Respiratory: No respiratory distress, Other (Mild wheeze right upper lobe) - Abdomen Abdomen: Soft, Non tender, Non distended - Derm Derm: Warm and dry, No rash - Extremities Extremities: Other (There is a bandage over the left knee. There is no significant erythema or warmth to the knee. No drainage.) - Neuro Neuro: Alert and oriented X 3 - Psych Psych: Normal mood, Normal affect Results - Vitals Vitals: Vital Signs - 24 hr 07/16/22 07/16/22 12:29 14:31 Temperature 37.2 C Heart Rate 99 78 Respiratory 22 18 Rate Blood Pressure 155/77 H 134/67 H O2 Saturation 96 94 Oxygen O2 Source Room air - Labs Labs: Laboratory Tests 07/16/22 07/16/22 07/16/22 12:45 12:51 12:51 WBC 6.2 RBC 4.11 L Hgb 12.9 Hct 38.5 MCV 93.7 MCH 31.4 H MCHC 33.5 RDW 13.1 Plt Count 236 MPV 9.6 Neut # (Auto) 4.4 Lymph # (Auto) 0.7 L [place] # (Auto) 1.0 Eos # (Auto) 0.0 Baso # (Auto) 0.0 Absolute Nucleated RBC 0.00 Nucleated RBC % 0.0 Sodium 135 Potassium 3.7 Chloride 103 Carbon Dioxide 24 Anion Gap 8.0 BUN 17 Creatinine 0.7 Estimated GFR (MDRD) 81 L Glucose 121 H Lactic Acid Calcium 8.7 Total Bilirubin 0.8 AST 47 H ALT 37 Alkaline Phosphatase 58 Total Protein 6.6 L Albumin 3.2 Globulin 3.4 Albumin/Globulin Ratio 0.9 L Lipase 31 Urine Color Urine Clarity Urine pH Ur Specific [place] Urine Protein Urine Glucose (UA) Urine Ketones Urine Occult Blood Urine Nitrite Urine Bilirubin Urine Urobilinogen Ur Leukocyte Esterase Ur Microscopic Review Urine Culture Comments Nasal Adenovirus (PCR) NOT DETECTED Nasal B. parapertussis DNA (PCR) NOT DETECTED Nasal Coronavir 229E PCR NOT DETECTED Nasal Coronavir HKU1 PCR NOT DETECTED Nasal Coronavir NL63 PCR NOT DETECTED Nasal Coronavir OC43 PCR NOT DETECTED Nasal Enterovir/Rhinovir PCR NOT DETECTED Nasal Influenza B PCR NOT DETECTED Nasal Influenza A PCR NOT DETECTED Nasal Parainfluen 1 PCR NOT DETECTED Nasal Parainfluen 2 PCR NOT DETECTED Nasal Parainfluen 3 PCR NOT DETECTED Nasal Parainfluen 4 PCR NOT DETECTED Nasal RSV (PCR) NOT DETECTED Nasal B.pertussis DNA PCR NOT DETECTED Nasal C.pneumoniae (PCR) NOT DETECTED Re[place]undo Human Metapneumo PCR NOT DETECTED Nasal M.pneumoniae (PCR) NOT DETECTED Nasal SARS-CoV-2 (PCR) NOT DETECTED 07/16/22 07/16/22 12:51 13:19 WBC RBC Hgb Hct MCV MCH MCHC RDW Plt Count MPV Neut # (Auto) Lymph # (Auto) [place] # (Auto) Eos # (Auto) Baso # (Auto) Absolute Nucleated RBC Nucleated RBC % Sodium Potassium Chloride Carbon Dioxide Anion Gap BUN Creatinine Estimated GFR (MDRD) Glucose Lactic Acid 0.7 Calcium Total Bilirubin AST ALT Alkaline Phosphatase Total Protein Albumin Globulin Albumin/Globulin Ratio Lipase Urine Color YELLOW Urine Clarity CLEAR Urine pH 6.0 Ur Specific [place] 1.010 Urine Protein NEGATIVE Urine Glucose (UA) NEGATIVE Urine Ketones TRACE Urine Occult Blood NEGATIVE Urine Nitrite NEGATIVE Urine Bilirubin NEGATIVE Urine Urobilinogen 0.2 (NORMAL) Ur Leukocyte Esterase NEGATIVE Ur Microscopic Review NOT INDICATED Urine Culture Comments NOT INDICATED Nasal Adenovirus (PCR) Nasal B. parapertussis DNA (PCR) Nasal Coronavir 229E PCR Nasal Coronavir HKU1 PCR Nasal Coronavir NL63 PCR Nasal Coronavir OC43 PCR Nasal Enterovir/Rhinovir PCR Nasal Influenza B PCR Nasal Influenza A PCR Nasal Parainfluen 1 PCR Nasal Parainfluen 2 PCR Nasal Parainfluen 3 PCR Nasal Parainfluen 4 PCR Nasal RSV (PCR) Nasal B.pertussis DNA PCR Nasal C.pneumoniae (PCR) Re[place]undo Human Metapneumo PCR Nasal M.pneumoniae (PCR) Nasal SARS-CoV-2 (PCR) PD Medical Decision Making - ED course Complexity details: reviewed results, re-evaluated patient, considered differential, d/w patient, d/w family ED course: 77-year-old female feels better after Dilaudid and IV fluids. Her symptoms are consistent with UTI, she did urinate just prior to giving the urine sample, possibly false negative? She has no evidence of sepsis. No pneumonia. Negative chest x-ray. No acute findings on CBC, chemistry. Lactate is negative. Blood cultures were drawn. Respiratory PCR is negative. Given her symptoms, we will try treating her with Bactrim as this is worked for her UTIs in the past. We will also increase her pain medication at home to see if this helps with her pain control and allows her to sleep. She was given a dose of IV Dilaudid here and feels better. Patient and family counseled regarding signs and symptoms for which I believe and urgent re-evaluation would be necessary. Patient with good understanding of and agreement to plan and is comfortable going home at this time This document was made in part using voice recognition software. While efforts are made to proofread this document, sound alike and grammatical errors may occur. Departure - Departure Disposition: 01 Home, Self Care Clinical Impression: Post-operative pain UTI (urinary tract infection) Qualifiers: Urinary tract infection type: site unspecified Hematuria presence: without hematuria Qualified Code(s): N39.0 - Urinary tract infection, site not specified Condition: Good Instructions: ED UTI Cystitis Female Follow-Up: Jennifer Jackson MD [Primary Care Provider] - Within 1 week Prescriptions: Sulfamethox/Trimeth 800/160 [Bactrim Ds 800/160] 1 each PO BID #14 tablet HYDROmorphone [Dilaudid] 2 mg PO Q6H PRN #10 tablet PRN Reason: knee pain Comments: [facility] in [place]. Please follow-up with your doctor for further care. Please return if you worsen. Please take all antibiotics until gone. I am prescribing a short course of narcotic pain medication for you. These are potentially dangerous and addictive medications that should be used carefully. These medications may constipate you. Take an [id number] stool softener (docusate) twice daily with plenty of water while taking these medications. If you go 24 hours without a bowel movement, take [id number] miralax, per package instructions. Do not drink or drive while taking these medications. If you received narcotic or sedating medications while in the emergency department, do not drive for 24 hours. Store this medication in a safe, secure place and out of reach of children. It is a violation of federal law to give or sell this medication to another p erson or to use in a manner other than prescribed. The ED will not refill narcotic prescriptions, including prescriptions lost or stolen. To dispose of unwanted medications: 1. [facility] at [address] in [place] has a medication drop box. They accept prescription medications (in pill form) Monday through Monday 9:00 a.m. to 5:00 p.m. 2. The [facility] [employer] accepts prescription medications (in pill form only) for disposal year round. Call for more information. 3. Contact the [facility] for the next [facility] sponsored prescription drug collection event. , [phone], or [phone]; Discharge Date/Time: 07/16/22 14:31
[2022-07-16 12:58] LABS: BASOPHILS % (AUTO) 0.3 %; EOSINOPHILS % (AUTO) 0.5 %; HCT - HEMATOCRIT 38.5 % (37.0-47.0); HGB - HEMOGLOBIN 12.9 g/dL (12.0-16.0); LYMPHOCYTES # (AUTO) 0.7 10^3/uL (1.5-3.5); LYMPHOCYTES % (AUTO) 11.5 %; MEAN CORPUSCULAR HEMOGLOBIN 31.4 pg (27.0-31.0); MEAN CORPUSCULAR HGB CONC 33.5 g/dL (32.0-36.0); MEAN CORPUSCULAR VOLUME 93.7 fL (81.0-99.0); MEAN PLATELET VOLUME 9.6 fL (7.9-10.8); MONOCYTES % (AUTO) 15.6 %; NEUTROPHILS # (AUTO) 4.4 10^3/uL (1.5-6.6); NEUTROPHILS % (AUTO) 71.8 %; PLT - PLATELET COUNT 236 10^3/uL (130-450); RED BLOOD COUNT 4.11 10^6/uL (4.20-5.40); RED CELL DISTRIBUTION WIDTH 13.1 % (12.0-15.0); WHITE BLOOD COUNT 6.2 x10^3/uL (4.8-10.8)
[2022-07-16 13:12] LABS: ALBUMIN 3.2 g/dL (3.2-5.5); ALBUMIN/GLOBULIN RATIO 0.9 (1.0-2.2); BILIRUBIN,TOTAL 0.8 mg/dL (0.2-1.0); CALCIUM 8.7 mg/dL (8.5-10.3); CREATININE 0.7 mg/dL (0.4-1.0); POTASSIUM 3.7 mmol/L (3.5-5.0); TOTAL PROTEIN 6.6 g/dL (6.7-8.2)
--- NOTE | 2022-07-16 13:33 | XRAY Report ---
PROCEDURE: Chest 1 View X-Ray INDICATIONS: chest pain TECHNIQUE: One view of the chest was acquired. COMPARISON: None. FINDINGS: Surgical changes and devices: None. Lungs and pleura: No pleural effusions or pneumothorax. Lungs are clear. Mediastinum: Mediastinal contours appear normal. Heart size is normal. Bones and chest wall: No suspicious bony lesions. Overlying soft tissues appear unremarkable. IMPRESSION: No acute cardiopulmonary findings Reviewed by: Rich Escalona MD on 07/16/2022 12:32 PM AKDT Approved by: Rich Escalona MD on 07/16/2022 12:32 PM AKDT Station ID: [id number]
[2022-07-16 13:40] LABS: BILIRUBIN,URINE NEGATIVE (NEGATIVE); GLUCOSE, URINE (UA) NEGATIVE (NEGATIVE); KETONES,URINE (UA) TRACE mg/dL (NEGATIVE); LEUKOCYTE ESTERASE, URINE NEGATIVE (NEGATIVE); NITRITE,URINE NEGATIVE (NEGATIVE); OCCULT BLOOD,URINE NEGATIVE (NEGATIVE); PROTEIN,URINE NEGATIVE (NEGATIVE); UROBILINOGEN,URINE 0.2 (NORMAL) E.U./dL (NORMAL)
[2022-07-16 13:43] LABS: CLARITY,URINE CLEAR (CLEAR)
[2022-07-16 13:51] LABS: CORONAVIRUS 229E-RESP PCR NOT DETECTED; CORONAVIRUS HKU1-RESP PCR NOT DETECTED; CORONAVIRUS NL63-RESP PCR NOT DETECTED; CORONAVIRUS OC43-RESP PCR NOT DETECTED; HUMAN METAPNEUMOVIRUS NOT DETECTED; INFLUENZA A- RESP PCR PANEL NOT DETECTED; INFLUENZA B - RESP PCR PANEL NOT DETECTED; PARAINFLUENZA VIRUS 1 NOT DETECTED; RHINOVIRUS/ENTEROVIRUS NOT DETECTED; SARS-CoV-2 -RESP PCR PANEL NOT DETECTED
[2022-07-16 13:52] LABS: B. PARAPERTUSSIS- RESP PCR PAN NOT DETECTED; B. PERTUSSIS- RESP PCR PANEL NOT DETECTED; C. PNEUMONIAE- RESP PCR PANEL NOT DETECTED; M. PNEUMONIAE- RESP PCR PANEL NOT DETECTED; PARAINFLUENZA VIRUS 2 NOT DETECTED; PARAINFLUENZA VIRUS 3 NOT DETECTED; PARAINFLUENZA VIRUS 4 NOT DETECTED; RSV- RESP PCR PANEL NOT DETECTED
[2022-07-16 14:33] VITALS: BP 134/67
== END 2022-07-16 14:31 | disposition home or self-care (01) ==
LOC: ED 12:09
DX: N39.0 Urinary tract infection, site not specified (principal); G89.18 Other acute postprocedural pain; Z20.822 Contact with and (suspected) exposure to COVID-19
CPT/HCPCS: 36415; 71045; 80053; 81003; 83605; 83690; 85025; 87040; 87633; 96374; 99284; J1170; 81001; 87086

== ENCOUNTER 2022-09-29 20:39 | Emergency (ER) | payer MEDICARE, OTHER ==
[2022-09-29 20:58] VITALS: BP 184/114
[2022-09-29] MEDS ORDERED: CLINDAMYCIN 150 MG CAPSULE PO STA (20:59)
[2022-09-29] MEDS ORDERED: LIDOCAINE-EPINEPH-TETRACAINE 3 ML SYRINGE TOP STA ×2 (21:05→21:46)
--- NOTE | 2022-09-29 21:06 | ED Physician Documentation ---
History of Present Illness - Stated complaint Stated Complaint: GLF - Chief complaint Chief Complaint: Laceration - History obtained from History obtained from: Patient - Additonal information Additional information: 77-year-old woman who is up-to-date on tetanus was working in her garden kind of tipped over and fell into a chain-link fence with blackberries through it. She has skin tears on the right forearm, left tricep, and left leg. The left leg injury is quite large. She has a history recently of partial knee replacement on the left and would like to start antibiotics. 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 : None HEENT: None Psych: None Musculoskeletal: Osteoarthritis, Osteoporosis Derm: None - Past Surgical History Past Surgical History: Yes Ortho: Arthroscopic surgery - Present Medications Home Medications: Ambulatory Orders Medication Instructions Recorded Confirmed Albuterol [Ventolin Hfa] 2 puffs INH Q4H PRN 08/07/12 08/24/20 Azelastine HCl [Astepro] 205.5 mcg NS BID 08/07/12 08/24/20 Fluticasone Furoate [Veramyst] 1 spray NS BID 08/07/12 08/24/20 Acetaminophen [Tylenol] 650 mg PO Q6H PRN 08/24/20 08/24/20 Albuterol 2.5 mg INH Q6HR PRN 08/24/20 08/24/20 Cholecalciferol (Vitamin D3) 2,000 unit PO DAILY 08/24/20 08/24/20 [Vitamin D3] Famotidine [Pepcid] 20 mg PO DAILY 08/24/20 08/24/20 Fluticasone/Salmeterol [Advair 1 each IH BID 08/24/20 08/24/20 500-50 Diskus] Ibuprofen 400 mg PO Q6HR PRN 08/24/20 08/24/20 Lactobacillus Acidophilus 1 each PO DAILY 08/24/20 08/24/20 [Probiotic Acidophilus] Montelukast [Singulair] 10 mg PO QPM 08/24/20 08/24/20 Multivitamin/Iron/Folic Acid 1 each PO DAILY 08/24/20 08/24/20 [Centrum Women Tablet] Ondansetron Odt [Zofran] 4 mg TL Q6H PRN #20 tablet 08/24/20 Tiotropium [place] [Spiriva 2 spray IN DAILY 08/24/20 08/24/20 Respimat] Phenazopyridine HCl [Pyridium] 200 mg PO TID PRN #6 tablet 02/20/21 Sulfamethox/Trimeth 800/160 1 each PO BID #14 tablet 02/20/21 [Bactrim Ds 800/160] HYDROmorphone [Dilaudid] 2 mg PO Q6H PRN #10 tablet 07/16/22 Sulfamethox/Trimeth 800/160 1 each PO BID #14 tablet 07/16/22 [Bactrim Ds 800/160] clindamycin HCL [Cleocin HCl] 300 mg PO QID #20 cap 09/29/22 - Allergies Allergies/Adverse Reactions: Allergies Allergy/AdvReac Type Severity Reaction Status Date / Time cephalexin [From Keflex] Allergy Anaphylaxis Verified 09/29/22 20:52 levofloxacin Allergy Cramps Verified 09/29/22 20:52 Penicillins Allergy Rash Verified 09/29/22 20:52 - Social History Does the pt smoke?: No Smoking Status: Never smoker Does the pt drink ETOH?: Yes Does the pt have substance abuse?: No - Immunizations Immunizations are current?: Yes PD ED PE NORMAL - Vitals Vital signs reviewed: Yes - General General: Alert and oriented X 3, No acute distress - HEENT HEENT: PERRL, EOMI - Extremities Extremities: Other (There is 2 small skin tears in the right forearm, one larger but well approximated skin tear on the left distal humerus area. There is a very large skin tear on the left leg measuring probably 15 cm long and gaping. It is just in the subcutaneous fat. No limited range of motion or bony tenderness) - Neuro Neuro: Alert and oriented X 3, Normal speech Results - Vitals Vitals: Vital Signs - 24 hr 09/29/22 20:45 Temperature 36.1 C L Heart Rate 94 Respiratory 18 Rate Blood Pressure 184/114 H O2 Saturation 95 Oxygen O2 Source Room air Procedures - General procedure General procedure: Wounds were irrigated and anesthetized with L ET. - Laceration (location) Left leg Length in cm: 15 Wound type: Curved, Into subcut fat Anesthesia: LET Wound preparation: Irrigated copiously NS Skin layer closure: Other (Mepitel) Right forearm Length in cm: 4 Wound type: Linear, Superficial Anesthesia: LET Wound preparation: Irrigated copiously NS Skin layer closure: Dermabond, Steri strips Left upper arm Length in cm: 4 Wound type: Linear, Superficial Anesthesia: LET Wound preparation: Irrigated copiously NS Skin layer closure: Dermabond, Steri strips Departure - Departure Disposition: 01 Home, Self Care Clinical Impression: Skin tear of left upper extremity Skin tear of right forearm without complication Qualifiers: Encounter type: initial encounter Qualified Code(s): S51.811A - Laceration without foreign body of right forearm, initial encounter Skin tear of left lower leg without complication Qualifiers: Encounter type: initial encounter Qualified Code(s): S81.812A - Laceration without foreign body, left lower leg, initial encounter Condition: Good Record reviewed to determine appropriate education?: Yes Instructions: ED Laceration Ext Sutr Stap Tape Follow-Up: Jennifer Jackson MD [Primary Care Provider] - Prescriptions: clindamycin HCL [Cleocin HCl] 300 mg PO QID #20 cap Comments: You were seen tonight for a very large skin tear on the left leg and 2 smaller skin tears on each arm. He received 5 mg of oxycodone and 300 mg of clindamycin. I sent your prescription electronically for the clindamycin to [facility] in [place]. Call Dr. Jackson's office tomorrow, for the leg laceration especially it would be reasonable to have a referral for the wound care clinic. [facility]. You can wash all wounds briefly with soap and water and then pat dry. Be very ambika with motion of the left leg.
[2022-09-29] MEDS ORDERED: oxyCODONE 5 MG TABLET PO STA (22:02)
== END 2022-09-29 23:04 | disposition home or self-care (01) ==
LOC: ED 20:39
DX: S51.811A Laceration without foreign body of right forearm, initial encounter (principal); S41.112A Laceration without foreign body of left upper arm, initial encounter; S81.812A Laceration without foreign body, left lower leg, initial encounter; W19.XXXA Unspecified fall, initial encounter; Y93.H2 Activity, gardening and landscaping; Y92.007 Garden or yard of unspecified non-institutional (private) residence as the place of occurrence of the external cause; Z96.652 Presence of left artificial knee joint
CPT/HCPCS: 12006; 99282; 99283; A9270

== ENCOUNTER 2022-12-25 09:59 | Outpatient (CLI) | payer MEDICARE, OTHER ==
--- NOTE | 2022-12-25 12:03 | Ultrasound Report ---
PROCEDURE: Abdomen Complete INDICATIONS: ABD PAIN TECHNIQUE: Real-time scanning was performed of the abdominal and retroperitoneal organs, with image documentatio n. COMPARISON: Ultrasound abdomen 01/03/2019. FINDINGS: Liver: Liver is normal in size and homogeneous in echotexture. Gallbladder: Multiple gallstones with the largest measuring 1.4 cm at the neck of the gallbladder. No gallbladder wall thickening or pericholecystic fluid. No sonographic Garcia's sign. Biliary ducts: Intrahepatic bile ducts are non-dilated. Extrahepatic bile duct caliber measures 3 m m. Normal is 6-7 mm or less in diameter, or 10 mm or less post-cholecystectomy. Pancreas: Visualized portions of the pancreas are sonographically normal. Spleen: Spleen is normal in size and homogeneous in echotexture. Kidneys: Kidneys are normal in size and echotexture. Right kidney measures 10.4 cm long; left kidne y measures 10.8 cm long. No hydronephrosis or nephrolithiasis. No solid masses. No complex renal cy stic lesions which require follow-up. Aorta: Visualized aorta is normal in caliber at less than 3 cm. Iliacs: Not visualized secondary to overlying bowel gas IVC: Intrahepatic inferior vena cava is patent. Miscellaneous: No free abdominal fluid. IMPRESSION: Cholelithiasis with a large stone measuring 1.4 cm at the neck of the gallbladder. No evidence of acu te cholecystitis. Reviewed by: Darrell Hicks MD on 12/25/2022 12:02 PM PDT Approved by: Darrell Hicks MD on 12/25/2022 12:02 PM PDT Station ID: [id number]
== END 2022-12-25 10:00 | disposition home or self-care (01) ==
LOC: DI 09:59
PROVIDERS: ATTEND Physician Assistant
DX: R10.10 Upper abdominal pain, unspecified (principal); R11.2 Nausea with vomiting, unspecified; K21.9 Gastro-esophageal reflux disease without esophagitis; K80.20 Calculus of gallbladder without cholecystitis without obstruction

== ENCOUNTER 2023-01-11 10:46 | Outpatient (CLI) | payer MEDICARE, OTHER ==
[2023-01-11 11:14] LABS: CREATININE 0.7 mg/dL (0.6-1.3)
== END 2023-01-11 10:47 | disposition home or self-care (01) ==
LOC: LAB 10:46
PROVIDERS: ATTEND Internal Medicine
DX: Z79.899 Other long term (current) drug therapy (principal)
CPT/HCPCS: 36415; 82565

== ENCOUNTER 2023-01-13 10:11 | Outpatient (CLI) | payer MEDICARE, OTHER ==
[2023-01-13] MEDS ORDERED: iohexoL-300 100 ML VIAL IVP ONE (11:46)
--- NOTE | 2023-01-16 10:14 | CT Report ---
PROCEDURE: CHEST W INDICATIONS: CHRONIC COUGH CONTRAST: 100ml omni 300 TECHNIQUE: After the administration of intravenous contrast, 1 mm axial images were acquired from the pulmonary apices through the posterior costophrenic angles. Axial 5 mm soft tissue kernel reconstructions were performed as well as 8 mm axial MIP and coronal and sagittal 5 mm reformations. For radiation dose reduction, the following was used: automated exposure control, adjustment of mA and/or kV according to patient size. COMPARISON: 12/30/2016. FINDINGS: Image quality: Excellent. Lungs and pleura: No consolidation. No pleural effusions. No pneumothorax. No suspicious pulmonary n odules which require follow up. The coronary arteries have atherosclerotic calcifications. Mediastinum: Heart size is normal. No pericardial effusion. No large vessel abnormality. No mediastin al adenopathy by size criteria. Chest wall and lower neck: Thyroid is unremarkable. No axillary or supraclavicular adenopathy by size . Bones: No aggressive osseous abnormality. Upper Abdomen: Multiple layering stones are present in the gallbladder. IMPRESSION: 1. No acute abnormality of the chest. 2. Cholelithiasis without evidence of acute cholecystitis. Reviewed by: Ralph Jauregui on 01/16/2023 10:12 AM PDT Approved by: Ralph Jauregui on 01/16/2023 10:12 AM PDT Station ID: [id number]
== END 2023-01-13 10:12 | disposition home or self-care (01) ==
LOC: DI 10:11
PROVIDERS: ATTEND Internal Medicine
DX: R05.3 Chronic cough (principal); K80.20 Calculus of gallbladder without cholecystitis without obstruction
CPT/HCPCS: 71260; Q9967

== ENCOUNTER 2023-04-20 08:00 | Outpatient (CLI) | payer MEDICARE, OTHER ==
[2023-04-20 13:18] LABS: BILIRUBIN,URINE NEGATIVE (NEGATIVE); GLUCOSE, URINE (UA) NEGATIVE (NEGATIVE); KETONES,URINE (UA) NEGATIVE (NEGATIVE); LEUKOCYTE ESTERASE, URINE MODERATE (NEGATIVE); NITRITE,URINE NEGATIVE (NEGATIVE); OCCULT BLOOD,URINE LARGE (NEGATIVE); PROTEIN,URINE 100 mg/dL (NEGATIVE); UROBILINOGEN,URINE 0.2 (NORMAL) E.U./dL (NORMAL)
[2023-04-20 13:20] LABS: CLARITY,URINE HAZY (CLEAR)
[2023-04-20 13:26] LABS: BACTERIA,URINE Moderate /HPF (None Seen); RBC,URINE TNTC /HPF (0-5); SQUAMOUS EPITHELIAL CELL,UR FEW Squamous (<= Few); WBC,URINE >25 /HPF (0-5)
== END 2023-04-20 23:59 | disposition home or self-care (01) ==
LOC: LAB 08:00
PROVIDERS: ATTEND Physician Assistant Medical
DX: N30.00 Acute cystitis without hematuria (principal)
CPT/HCPCS: 81001; 87077; 87086; 87181

== ENCOUNTER 2023-04-21 09:42 | Outpatient (CLI) | payer MEDICARE, OTHER ==
--- NOTE | 2023-04-21 11:00 | XRAY Report ---
PROCEDURE: Ankle 3+V RT INDICATIONS: RIGHT ANKLE PAIN TECHNIQUE: 3 views of the ankle were acquired. COMPARISON: None. FINDINGS: Bones: No fractures or dislocations. Ankle mortise is normally aligned. Mild degenerative changes m edially in the mortise. Small spurring along the distal lateral mortise. Small plantar calcaneal spur and mild degenerative changes dorsally at the midfoot. No suspicious bony lesions. Soft tissues: No tibiotalar joint effusion. Achilles tendon demonstrates mild distal thickening and probable insertional calcific tendinopathy. The BB indicating the site of palpable mass is located i mmediately superficial to the medial malleolus. The subcutaneous tissue in this region appears normal . IMPRESSION: 1. No acute abnormality. 2. No superficial or bony mass at the site of palpable abnormality (at the medial malleolus). 3. Mild degenerative changes as described. Reviewed by: Keisha Pool MD on 04/21/2023 10:59 AM PST Approved by: Keisha Pool MD on 04/21/2023 10:59 AM PST Station ID: [id number]
== END 2023-04-21 09:43 | disposition home or self-care (01) ==
LOC: DI 09:42
PROVIDERS: ATTEND Podiatrist
DX: M19.071 Primary osteoarthritis, right ankle and foot (principal); M77.31 Calcaneal spur, right foot; M77.8 Other enthesopathies, not elsewhere classified

== ENCOUNTER 2023-04-30 10:16 | Emergency (ER) | payer MEDICARE, OTHER ==
[2023-04-30 10:58] LABS: BILIRUBIN,URINE NEGATIVE (NEGATIVE); GLUCOSE, URINE (UA) NEGATIVE (NEGATIVE); KETONES,URINE (UA) NEGATIVE (NEGATIVE); LEUKOCYTE ESTERASE, URINE LARGE (NEGATIVE); NITRITE,URINE NEGATIVE (NEGATIVE); OCCULT BLOOD,URINE LARGE (NEGATIVE); PH,URINE 7.5 PH (5.0-7.5); PROTEIN,URINE 100 mg/dL (NEGATIVE); UROBILINOGEN,URINE 0.2 (NORMAL) E.U./dL (NORMAL)
[2023-04-30 11:01] LABS: CLARITY,URINE CLOUDY (CLEAR)
[2023-04-30 11:18] LABS: BACTERIA,URINE Rare /HPF (None Seen); CRYSTALS,URINE 3-5 Uric Acid /LPF; RBC,URINE TNTC /HPF (0-5); SQUAMOUS EPITHELIAL CELL,UR RARE Squamous (<= Few); WBC,URINE >25 /HPF (0-5)
--- NOTE | 2023-04-30 11:24 | ED Physician Documentation ---
History of Present Illness - Stated complaint Stated Complaint: PX URINATION - Chief complaint Chief Complaint: UTI - Additonal information Additional information: 78-year-old woman with occasional UTIs developed cystitis symptoms around Mar and was seen in the walk-in clinic. She was initially prescribed Bactrim but eventually she grew an ESBL E. coli that was resistant to Bactrim and changed over to Macrobid. She was doing well but finished the Macrobid a few days ago and developed cystitis symptoms again without flank pain or fevers. PD PAST MEDICAL HISTORY - Past Medical History Past Medical History: Yes Cardiovascular: None Respiratory: Asthma Neuro: None Endocrine/Autoimmune: None GI: Hepatitis DISTANCE EDUCATION FACULTY LIAISON: None : None HEENT: None Psych: None Musculoskeletal: Osteoarthritis, Osteoporosis Derm: None - Past Surgical History Past Surgical History: Yes Ortho: Knee replacement, Arthroscopic surgery - Present Medications Home Medications: Ambulatory Orders Medication Instructions Recorded Confirmed Azelastine HCl [Astepro] 1 spray NS BID 08/07/12 01/24/23 Fluticasone Furoate [Veramyst] 1 spray NS BID 08/07/12 01/24/23 Acetaminophen [Tylenol] 650 mg PO Q6H PRN 08/24/20 01/24/23 Fluticasone/Salmeterol [Advair 1 each IH BID 08/24/20 01/24/23 500-50 Diskus] Lactobacillus Acidophilus 1 each PO DAILY 08/24/20 01/24/23 [Probiotic Acidophilus] Montelukast [Singulair] 10 mg PO QPM 08/24/20 01/24/23 Multivitamin/Iron/Folic Acid 1 each PO DAILY 08/24/20 01/24/23 [Centrum Women Tablet] Cetirizine [ZyrTEC] 10 mg PO DAILY 01/24/23 01/24/23 Levalbuterol [Xopenex] 1 puffs INH Q4-6H PRN 01/24/23 01/24/23 Oxycodone HCl/Acetaminophen 1 - 2 each PO Q6H PRN #14 tablet 01/24/23 [Percocet 5-325 mg Tablet] MDD 6 tabs Pantoprazole Sodium 20 mg PO DAILY 01/24/23 01/24/23 clindamycin HCL [Cleocin HCl] 300 mg PO Q6H #40 cap 01/24/23 - Allergies Allergies/Adverse Reactions: Allergies Allergy/AdvReac Type Severity Reaction Status Date / Time cephalexin [From Keflex] Allergy Anaphylaxis Verified 04/30/23 10:31 levofloxacin Allergy Cramps Verified 04/30/23 10:31 Penicillins Allergy Rash Verified 04/30/23 10:31 - Social History Does the pt smoke?: No Smoking Status: Never smoker Does the pt drink ETOH?: Yes Does the pt have substance abuse?: No - Immunizations Immunizations are current?: Yes - POLST Patient has POLST: No PD ED PE NORMAL - Vitals Vital signs reviewed: Yes - General General: Alert and oriented X 3 - Abdomen Abdomen: Soft, Non tender - Back Back: Other (She is tender over the right kidney) - Neuro Neuro: Alert and oriented X 3, Normal speech - Psych Psych: Normal mood, Normal affect Results - Vitals Vitals: Vital Signs - 24 hr 04/30/23 10:29 Temperature 36.4 C L Heart Rate 98 Respiratory 18 Rate Blood Pressure 144/93 H O2 Saturation 98 Oxygen O2 Source Room air - Labs Labs: Laboratory Tests 04/30/23 10:34 Urine Color YELLOW Urine Clarity CLOUDY Urine pH 7.5 Ur Specific Delta 1.015 Urine Protein 100 H Urine Glucose (UA) NEGATIVE Urine Ketones NEGATIVE Urine Occult Blood LARGE H Urine Nitrite NEGATIVE Urine Bilirubin NEGATIVE Urine Urobilinogen 0.2 (NORMAL) Ur Leukocyte Esterase LARGE H Urine RBC TNTC H Urine WBC >25 H Ur Squamous Epith Cells RARE Squamous Urine Crystals 3-5 Uric Acid Urine Bacteria Rare Ur Microscopic Review INDICATED Urine Culture Comments INDICATED PD Medical Decision Making - ED course ED course: Suspect she failed treatment of her ESBL E. coli cystitis because she also has mild pyelonephritis and she was treated with Macrobid. Numerous antibiotic allergies and the resistance pattern of the bacterium would only leave ciprofloxacin or the pen ems as options for treatment. She is allergic to levofloxacin and already has a lot of tendinopathy so would like to go ahead with IM imipenem. I asked the pharmacist to give her 1 g of ertapenem here and emailed her PCP as she will need [facility] clinic orders for the next week. Departure - Departure Disposition: 01 Home, Self Care Clinical Impression: Pyelonephritis Condition: Good Record reviewed to determine appropriate education?: Yes Instructions: Pyelonephritis Dc Comments: As discussed, given the resistance pattern and your allergies we are very limited as to antibiotics options for this. You received 1 g of ertapenem here and I have emailed Dr. Jackson and recommended that she right MAC orders for 1 g of ertapenem daily for the next 6 days, 7 days total in the [facility] clinic. If you do not hear from her tomorrow you can return to the emergency department for subsequent dosing until that get straightened out.
[2023-04-30 11:32] VITALS: BP 138/88; O2SAT 99
[2023-04-30] MEDS: ERTAPENEM 1 GM VIAL IM STA (11:52)
== END 2023-04-30 11:58 | disposition home or self-care (01) ==
LOC: ED 10:16
DX: N12 Tubulo-interstitial nephritis, not specified as acute or chronic (principal)
CPT/HCPCS: 81001; 87086; 96374; 99283; 99284; J1335; 81003

== ENCOUNTER 2023-05-04 10:04 | Inpatient (IN) | payer MEDICARE, OTHER ==
[2023-05-04] MEDS ORDERED: ONDANSETRON 4 MG/2 ML VIAL IVP STA (10:38)
[2023-05-04 11:15] LABS: BASOPHILS # (AUTO) 0.1 10^3/uL (0.0-0.1); BASOPHILS % (AUTO) 0.3 %; EOSINOPHILS % (AUTO) 0.2 %; HGB - HEMOGLOBIN 14.4 g/dL (12.0-16.0); LYMPHOCYTES # (AUTO) 0.7 10^3/uL (1.5-3.5); LYMPHOCYTES % (AUTO) 3.6 %; MEAN CORPUSCULAR HEMOGLOBIN 30.9 pg (27.0-31.0); MEAN CORPUSCULAR HGB CONC 33.5 g/dL (32.0-36.0); MEAN CORPUSCULAR VOLUME 92.3 fL (81.0-99.0); MEAN PLATELET VOLUME 9.8 fL (7.9-10.8); MONOCYTES # (AUTO) 1.9 10^3/uL (0.0-1.0); MONOCYTES % (AUTO) 9.8 %; NEUTROPHILS # (AUTO) 16.5 10^3/uL (1.5-6.6); NEUTROPHILS % (AUTO) 85.6 %; PLT - PLATELET COUNT 232 10^3/uL (130-450); RED BLOOD COUNT 4.66 10^6/uL (4.20-5.40); RED CELL DISTRIBUTION WIDTH 13.1 % (12.0-15.0); WHITE BLOOD COUNT 19.2 x10^3/uL (4.8-10.8)
[2023-05-04 11:21] LABS: SLIDE REVIEW? Indicated
[2023-05-04 11:28] LABS: ALBUMIN 3.5 g/dL (3.2-5.5); ALBUMIN/GLOBULIN RATIO 1.1 (1.0-2.2); BILIRUBIN,TOTAL 1.1 mg/dL (0.2-1.0); CALCIUM 8.9 mg/dL (8.5-10.3); CREATININE 0.9 mg/dL (0.6-1.3); POTASSIUM 3.7 mmol/L (3.5-4.5); TOTAL PROTEIN 6.8 g/dL (6.4-8.9)
[2023-05-04 11:52] LABS: RBC MORPHOLOGY (MULTIPLE) 1+ ANISOCYTOSIS (NORMAL)
[2023-05-04 12:03] LABS: B. PARAPERTUSSIS- RESP PCR PAN NOT DETECTED; B. PERTUSSIS- RESP PCR PANEL NOT DETECTED; C. PNEUMONIAE- RESP PCR PANEL NOT DETECTED; CORONAVIRUS 229E-RESP PCR NOT DETECTED; CORONAVIRUS HKU1-RESP PCR NOT DETECTED; CORONAVIRUS NL63-RESP PCR NOT DETECTED; CORONAVIRUS OC43-RESP PCR NOT DETECTED; HUMAN METAPNEUMOVIRUS NOT DETECTED; INFLUENZA A- RESP PCR PANEL NOT DETECTED; INFLUENZA B - RESP PCR PANEL NOT DETECTED; M. PNEUMONIAE- RESP PCR PANEL NOT DETECTED; PARAINFLUENZA VIRUS 1 NOT DETECTED; PARAINFLUENZA VIRUS 2 NOT DETECTED; PARAINFLUENZA VIRUS 3 NOT DETECTED; PARAINFLUENZA VIRUS 4 NOT DETECTED; RHINOVIRUS/ENTEROVIRUS NOT DETECTED; RSV- RESP PCR PANEL NOT DETECTED; SARS-CoV-2 -RESP PCR PANEL NOT DETECTED
[2023-05-04] MEDS: ACETAMINOPHEN 500 MG TABLET PO STA (12:03)
[2023-05-04] MEDS: ONDANSETRON 4 MG/2 ML VIAL IVP STA (12:03)
[2023-05-04] MEDS: SODIUM CHLORIDE 0.9% 1,000 ML IV STA ×2 (12:05→13:43)
--- NOTE | 2023-05-04 12:05 | ED Physician Documentation ---
History of Present Illness - Stated complaint Stated Complaint: LETHARGIC/V/D - Chief complaint Chief Complaint: General - History obtained from History obtained from: Patient, Family - Additonal information Additional information: The patient is brought to the emergency department by family for chief complaint of worsening symptoms after being treated for the last approximately week and a half for urinary tract infection. She was originally started on Bactrim but culture results revealed that her bacteria were resistant to this and so she was switched to Macrobid. She completed this course of antibiotics but then had recurrence of symptoms. Her findings were concerning for pyelonephritis and she was started on ertapenem as an outpatient through the [facility] clinic. She has been getting daily IM injections of ertapenem but states that she has just continued to worsen. She has had a fever yesterday and today and has just been increasingly weak. She has had nausea vomiting and diarrhea. No respiratory symptoms. No specific sick contacts. She is not a diabetic. The patient denies any back pain or dysuria. She states she had both of these originally but they resolved and she took antibiotics. Her family states that she has seemed less alert and somewhat confused. The patient is able to offer history without difficulty. She has had heavy diarrhea over the last couple of days and apparently woke up soaked in diarrhea this morning. 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 PROJECT LEAD: None : None HEENT: None Psych: None Musculoskeletal: Osteoarthritis, Osteoporosis Derm: None - Past Surgical History Past Surgical History: Yes Ortho: Knee replacement, Arthroscopic surgery - Present Medications Home Medications: Ambulatory Orders Medication Instructions Recorded Confirmed Azelastine HCl [Astepro] 1 spray NS BID 08/07/12 05/04/23 Fluticasone Furoate [Veramyst] 1 spray NS BID 08/07/12 05/04/23 Fluticasone/Salmeterol [Advair 1 each IH BID 08/24/20 05/04/23 500-50 Diskus] Lactobacillus Acidophilus 1 each PO DAILY 08/24/20 05/04/23 [Probiotic Acidophilus] Montelukast [Singulair] 10 mg PO QPM 08/24/20 05/04/23 Multivitamin/Iron/Folic Acid 1 each PO DAILY 08/24/20 05/04/23 [Centrum Women Tablet] Cetirizine [ZyrTEC] 10 mg PO DAILY 01/24/23 05/04/23 Levalbuterol [Xopenex] 1 puffs INH Q4-6H PRN 01/24/23 05/04/23 Pantoprazole Sodium 20 mg PO DAILY 01/24/23 05/04/23 - Allergies Allergies/Adverse Reactions: Allergies Allergy/AdvReac Type Severity Reaction Status Date / Time cephalexin [From Keflex] Allergy Anaphylaxis Verified 05/04/23 10:42 glecaprevir [From Mavyret] Allergy Rash Verified 05/04/23 11:27 levofloxacin Allergy Cramps Verified 05/04/23 10:42 Penicillins Allergy Rash Verified 05/04/23 10:42 pibrentasvir [From Mavyret] Allergy Rash Verified 05/04/23 11:27 - Social History Does the pt smoke?: No Smoking Status: Never smoker Does the pt drink ETOH?: Yes Does the pt have substance abuse?: No - Immunizations Immunizations are current?: Yes - POLST Patient has POLST: No PD ED PE NORMAL - Vitals Vital signs reviewed: Yes - General General: Alert and oriented X 3, No acute distress, Well developed/nourished, Other (The patient appears moderately ill but nontoxic.) - HEENT HEENT: Atraumatic, PERRL, EOMI, Moist mucous membranes - Neck Neck: Supple, no meningeal sign - Cardiac Cardiac: RRR, No murmur - Respiratory Respiratory: No respiratory distress, Clear bilaterally - Abdomen Abdomen: Soft, Non tender, Non distended - Derm Derm: Normal color, Warm and dry, No rash - Extremities Extremities: No deformity, No edema - Neuro Neuro: Alert and oriented X 3, Other (Grossly intact) - Psych Psych: Normal mood, Normal affect Results - Vitals Vitals: Vital Signs - 24 hr 05/04/23 10:37 Temperature 38.2 C H Heart Rate 117 H Respiratory 20 Rate Blood Pressure 132/66 H O2 Saturation 94 Oxygen O2 Source Room air - Labs Labs: Laboratory Tests 05/04/23 05/04/23 05/04/23 11:05 11:05 11:05 WBC 19.2 H RBC 4.66 Hgb 14.4 Hct 43.0 MCV 92.3 MCH 30.9 MCHC 33.5 RDW 13.1 Plt Count 232 MPV 9.8 Neut # (Auto) 16.5 H Lymph # (Auto) 0.7 L Hopkins # (Auto) 1.9 H Eos # (Auto) 0.0 Baso # (Auto) 0.1 Absolute Nucleated RBC 0.00 Nucleated RBC % 0.0 Manual Slide Review Indicated RBC Morph Micro Appear 1+ ANISOCYTOSIS Sodium 132 L Potassium 3.7 Chloride 99 L Carbon Dioxide 26 Anion Gap 7.0 BUN 23 H Creatinine 0.9 Estimated GFR (MDRD) 61 L Glucose 140 H Lactic Acid Calcium 8.9 Total Bilirubin 1.1 H AST 37 ALT 39 Alkaline Phosphatase 59 Total Protein 6.8 Albumin 3.5 Globulin 3.3 Albumin/Globulin Ratio 1.1 Lipase 19 Nasal Adenovirus (PCR) NOT DETECTED Nasal B. parapertussis DNA (PCR) NOT DETECTED Nasal Coronavir 229E PCR NOT DETECTED Nasal Coronavir HKU1 PCR NOT DETECTED Nasal Coronavir NL63 PCR NOT DETECTED Nasal Coronavir OC43 PCR NOT DETECTED Nasal Enterovir/Rhinovir PCR NOT DETECTED Nasal Influenza B PCR NOT DETECTED Nasal Influenza A PCR NOT DETECTED Nasal Parainfluen 1 PCR NOT DETECTED Nasal Parainfluen 2 PCR NOT DETECTED Nasal Parainfluen 3 PCR NOT DETECTED Nasal Parainfluen 4 PCR NOT DETECTED Nasal RSV (PCR) NOT DETECTED Nasal B.pertussis DNA PCR NOT DETECTED Nasal C.pneumoniae (PCR) NOT DETECTED Reymundo Human Metapneumo PCR NOT DETECTED Nasal M.pneumoniae (PCR) NOT DETECTED Nasal SARS-CoV-2 (PCR) NOT DETECTED 05/04/23 12:23 WBC RBC Hgb Hct MCV MCH MCHC RDW Plt Count MPV Neut # (Auto) Lymph # (Auto) Hopkins # (Auto) Eos # (Auto) Baso # (Auto) Absolute Nucleated RBC Nucleated RBC % Manual Slide Review RBC Morph Micro Appear Sodium Potassium Chloride Carbon Dioxide Anion Gap BUN Creatinine Estimated GFR (MDRD) Glucose Lactic Acid 0.7 Calcium Total Bilirubin AST ALT Alkaline Phosphatase Total Protein Albumin Globulin Albumin/Globulin Ratio Lipase Nasal Adenovirus (PCR) Nasal B. parapertussis DNA (PCR) Nasal Coronavir 229E PCR Nasal Coronavir HKU1 PCR Nasal Coronavir NL63 PCR Nasal Coronavir OC43 PCR Nasal Enterovir/Rhinovir PCR Nasal Influenza B PCR Nasal Influenza A PCR Nasal Parainfluen 1 PCR Nasal Parainfluen 2 PCR Nasal Parainfluen 3 PCR Nasal Parainfluen 4 PCR Nasal RSV (PCR) Nasal B.pertussis DNA PCR Nasal C.pneumoniae (PCR) Reymundo Human Metapneumo PCR Nasal M.pneumoniae (PCR) Nasal SARS-CoV-2 (PCR) - Rads (name of study) chest XR Relevant Findings:: Final report received, See rad report (neg) PD Medical Decision Making - ED course Complexity details: reviewed old records, reviewed results, re-evaluated patient, considered differential, d/w patient, d/w family ED course: The patient was given IV fluids in the emergency department and treated with Tylenol for her fever, which was up to 102 orally upon my evaluation. She had a dose of ertapenem waiting for her at the [facility] clinic and as the pharmacist said they could not convert it to IV, I did have her get that IM dose. I was concerned that the patient has been on multiple antibiotic courses and has been most recently on a fairly heavy hitting parenteral antibiotic but still seems to be getting worse. I discussed with the patient and her family that we would take a fresh look with labs, blood cultures, lactic acid level, respiratory PCR, chest x-ray, and stool cultures including C. difficile toxin which is a concern. Patient's white blood cell count was found to be 19. Her lactate was normal. Respiratory PCR panel was negative. Chest x-ray did not show any acute findings. The patient was given a couple liters of point in normal saline here in the emergency department. She had not as at the time of this dictation been able to give a stool sample. I felt the patient should be admitted to the hospital given that she has failed outpatient treatment for her urinary tract infection/pyelonephritis and continues to decline. I do have strong suspicion for C. difficile and we will continue to pursue getting a stool sample. I have discussed the case with Dr. Lawrence, who is on duty for hospitalist service and she has agreed to the patient to her service. The patient and family are agreeable to this plan as well. Departure - Departure Disposition: 66 [facility] DC/Xfer Clinical Impression: Pyelonephritis Fever Qualifiers: Fever type: unspecified Qualified Code(s): R50.9 - Fever, unspecified Diarrhea Qualifiers: Diarrhea type: unspecified type Qualified Code(s): R19.7 - Diarrhea, unspecified Condition: Serious Forms: PCP List
[2023-05-04] MEDS: ERTAPENEM 1 GM VIAL IM ONE (12:13)
--- NOTE | 2023-05-04 13:36 | XRAY Report ---
PROCEDURE: Chest 1V INDICATIONS: fever TECHNIQUE: One view of the chest was acquired. COMPARISON: None. FINDINGS: Surgical changes and devices: None. Lungs and pleura: No pleural effusions or pneumothorax. Mild patchy bilateral perihilar opacity. Mediastinum: Mediastinal contours appear normal. Heart size is normal. Bones and chest wall: No suspicious bony lesions. Overlying soft tissues appear unremarkable. IMPRESSION: Mild atypical pneumonia. Reviewed by: Holli Stockton MD on 05/04/2023 1:34 PM PST Approved by: Holli Stockton MD on 05/04/2023 1:34 PM [facility] Station ID: [id number]
[2023-05-04] MEDS ORDERED: ONDANSETRON 4 MG/2 ML VIAL IVP PRN (14:14)
--- NOTE | 2023-05-04 16:07 | CT Report ---
PROCEDURE: Abdomen/Pelvis WO INDICATIONS: recalcitrant pyelonephritis TECHNIQUE: A CT scan of the abdomen and pelvis was performed without the use of intravenous contrast. Images we re recorded and evaluated at appropriate window settings. Reformats: coronal and sagittal. For radiat ion dose reduction, the following was used: automated exposure control, adjustment of mA and/or kV ac cording to patient size. COMPARISON: None. FINDINGS: Image quality: Diagnostic. Lower chest: Calcification of the coronary vasculature. Liver: No contour-deforming mass. Gallbladder and biliary tree: There is a focus of calcification and soft tissue density within the po rta hepatis, possibly representing calculi within the contracted gallbladder. Spleen: No splenomegaly. Pancreas: No pancreatic ductal dilation. Adrenals: No adrenal nodule. Kidneys and ureters: No hydronephrosis. No renal cystic lesion which requires follow up. No solid mas s. Stomach, bowel and peritoneum: Stomach and small bowel are within normal limits. Appendix is normal. Colon is nondistended. There is thickening of the transverse and descending colon with surrounding pe ricolonic fast rating. Diverticulosis of the descending and sigmoid colon is present. Lymph nodes: No central or retroperitoneal adenopathy. Vessels: No infrarenal aortic aneurysm. PELVIS Reproductive organs: Unremarkable. Bladder: No wall thickness, accounting for underdistention. Pelvic lymph nodes: No pelvic adenopathy by size criteria. Bones: No aggressive osseous abnormality. Other: No significant ventral or inguinal hernia. IMPRESSION: 1. Colitis. Differential considerations include ischemia, infection, inflammation. Follow-up colonosc opy is recommended to exclude underlying neoplasm. 2. Normal appendix. 3. Possible contracted gallbladder with cholelithiasis. Reviewed by: Holli Stockton MD on 05/04/2023 4:06 PM PST Approved by: Holli Stockton MD on 05/04/2023 4:06 PM PST Station ID: [id number]
[2023-05-04] MEDS: VANCOMYCIN 125 MG CAPSULE PO SCH (16:19)
[2023-05-04] MEDS: SODIUM CHLORIDE FLUSH 0.9% 10 ML SYRINGE IVP SCH (16:20)
[2023-05-04] MEDS: SODIUM CHLORIDE 0.9% 1,000 ML IV SCH (18:30)
[2023-05-04] MEDS: ACETAMINOPHEN 325 MG TABLET PO PRN (18:38)
--- NOTE | 2023-05-04 19:01 | HISTORY & PHYSICAL EXAMINATION ---
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 She gets frequent UTIs. She was seen at a clinic about week ago with her typical c/o dysuria, and was prescribed Bactrim. The bacteria was not sensitive to that antibx which was then changed to Nitrofurantoin. The final urine culture returned showing ESBL- producing E coli, and she was given Ertepenam. Then she had arrangements made to get daily im Ertepenam in the [facility] clinic. Her dysuria did resolve. Two days into the Ertepenam course (3 days ago), she started to have diarrhea, then weakness, and slept all day, had a poor appetite only drinking liquids, and the diarrhea became more liquidy. Then she had voluminous watery diarrhea, mixed with blood, became dizzy with standing and spiked a fever, and she presented to the ER. She did get today's Ertepenam im dose while in the ER. She was febrile to 100.2 F, tachycardic, and had WBC elevated at 19.2 with a Left shift, normal Lactic Acid, BUN/creat 23/0.9, Na 132, otherwise normal electrolytes. The ER provider then spoke to me to admit this patient for treating weakness from dehydration due to voluminous diarrhea and/or failed out patient treatment for the ESBL-producing E coli UTI. She had a CXR that was read as having mild bilateral patchy opacities and she had an abd/pelvis CT that showed fat stranding of the transverse and descending colon, and diverticuli of the descending and sigmoid colon, no hydronephrosis or mass, and gallstones seen in a contracted gallbladder. A stool sample for c. diff came back (+). I spoke to her about her CODE BLUE wishes and she wants to be a Full Code. History - Past Medical History Cardiovascular: reports: Hypertension Respiratory: reports: Asthma Neuro: reports: None Endocrine/Autoimmune: reports: None GI: reports: Hepatitis [employer] WO[employer]: reports: None : reports: None HEENT: reports: None Psych: reports: None Musculoskeletal: reports: Osteoarthritis, Osteoporosis Derm: reports: None MRSA Hx?: No - Past Surgical History Ortho: reports: Knee replacement, Arthroscopic surgery - Family & Social History Living arrangement: At home Living Situation: With spouse/s.o. Social History Notes: She is retired from being a [employer]. She lives with her . She has no children. She never smoked cigarettes and hardly drinks any alcohol. - POLST Patient has POLST: No Meds/Allgy - Home Medications Home Medications: Ambulatory Orders Medication Instructions Recorded Confirmed Azelastine HCl [Astepro] 1 spray NS BID 08/07/12 05/04/23 Fluticasone Furoate [Veramyst] 1 spray NS BID 08/07/12 05/04/23 Fluticasone/Salmeterol [Advair 1 each IH BID 08/24/20 05/04/23 500-50 Diskus] Lactobacillus Acidophilus 1 each PO DAILY 08/24/20 05/04/23 [Probiotic Acidophilus] Montelukast [Singulair] 10 mg PO QPM 08/24/20 05/04/23 Multivitamin/Iron/Folic Acid 1 each PO DAILY 08/24/20 05/04/23 [Centrum Women Tablet] Cetirizine [ZyrTEC] 10 mg PO DAILY 01/24/23 05/04/23 Levalbuterol [Xopenex] 1 puffs INH Q4-6H PRN 01/24/23 05/04/23 Pantoprazole Sodium 20 mg PO DAILY 01/24/23 05/04/23 hydroCHLOROthiazide [Hydrodiuril] 25 mg PO DAILY 05/04/23 05/04/23 - Allergies Allergies/Adverse Reactions: Allergies Allergy/AdvReac Type Severity Reaction Status Date / Time cephalexin [From Keflex] Allergy Anaphylaxis Verified 05/04/23 10:42 glecaprevir [From Mavyret] Allergy Rash Verified 05/04/23 11:27 levofloxacin Allergy Cramps Verified 05/04/23 10:42 Penicillins Allergy Rash Verified 05/04/23 10:42 pibrentasvir [From Mavyret] Allergy Rash Verified 05/04/23 11:27 Review of Systems - Constitutional Constitutional: reports: Fatigue, Fever, Weakness, Poor appetite - Cardiovascular Cariovascular: reports: Other (Dizziness with standing, fell 3 times onto the bed when tried to get up OOB) - Gastrointestinal Gastrointestinal: reports: Diarrhea, Bloody stools, Poor appetite - All Other Systems All Other Systems: reports: Reviewed and negative Exam - Vital Signs Vital Signs: Vital Signs x48h Temp Pulse Pulse Resp BP BP Pulse Ox 05/04/23 15:40 36.8 C 99 18 106/62 93 05/04/23 14:00 37.5 C 100 16 145/78 H 92 05/04/23 12:30 37.5 C 101 H 14 137/76 H 97 - Physical Exam General Appearance: positive: Mild distress (Appears fatigued and weak) Eyes Bilateral: positive: Normal inspection, EOMI ENT: positive: ENT inspection nml Neck: positive: Nml inspection, No JVD Respiratory: positive: No respiratory distress, Breath sounds nml Cardiovascular: positive: Regular rate & rhythm, No murmur Abdomen: positive: Non-tender, Other (Mild distension) Skin: positive: Warm, Dry Extremities: positive: Non-tender, No pedal edema Neurologic/Psychiatric: positive: Oriented x3, CN's nml (2-12), Motor nml Conclusion/Plan - Problem List (1) C. difficile diarrhea Conclusion/Plan: This is the likely cause of the new fever and elevated WBC, rather than failed treatment of her UTI She is dehydrated on exam and by her pre-renal azotemia Plan: Contact isolation Vanco 125 mg po QID iv fluids to keep up with her fluid losses from diarrhea Bowel rest with a clear liquid diet Eventual probiotics to start Follow WBC daily Pain meds if needed (2) Urinary tract infection Conclusion/Plan: Plan: We will continue treatment with antibiotics If new dysuria develops she will need repeat W/U (3) Infection due to ESBL-producing Escherichia coli Conclusion/Plan: She has been on a strong antibx, and was on 2 other antibx before Ertepenam, likely causing the C diff bacterial overgrowth Plan: Cont Ertepenam at 1 gm iv daily, not im, based on the sensitivities of that Ecoli, and her many antibx allergies Begin probiotics (4) Hx of essential hypertension Conclusion/Plan: Plan: While she is needing fluids replaced, due to losses from diarrhea, her HCTZ BP me will be on hold Another po BP med or prn Hydralazine iv can be used if BP rises (5) Asthma Conclusion/Plan: Plan: Cont her usual allergy and asthma meds - Lab Results Fish Bones: 05/04/23 11:05 05/04/23 11:05 - Diagnostic Imaging Results Diagnostic Imaging Results: positive: Final report reviewed - Other Other Results/Comments: Attestation: The patient is expected to be hospitalized for greater than 2 midnights and is expected to be discharged or transferred to another facility within 96 hours: Yes.
[2023-05-04] MEDS: FAMOTIDINE 20 MG/2 ML VIAL IVP SCH (20:54)
[2023-05-05 05:05] LABS: BASOPHILS % (AUTO) 0.3 %; EOSINOPHILS % (AUTO) 0.4 %; HCT - HEMATOCRIT 37.4 % (37.0-47.0); HGB - HEMOGLOBIN 12.2 g/dL (12.0-16.0); LYMPHOCYTES % (AUTO) 6.9 %; MEAN CORPUSCULAR HEMOGLOBIN 30.6 pg (27.0-31.0); MEAN CORPUSCULAR HGB CONC 32.6 g/dL (32.0-36.0); MEAN CORPUSCULAR VOLUME 93.7 fL (81.0-99.0); MEAN PLATELET VOLUME 9.9 fL (7.9-10.8); PLT - PLATELET COUNT 200 10^3/uL (130-450); RED BLOOD COUNT 3.99 10^6/uL (4.20-5.40); RED CELL DISTRIBUTION WIDTH 13.2 % (12.0-15.0); WHITE BLOOD COUNT 18.7 x10^3/uL (4.8-10.8)
[2023-05-05 05:12] LABS: ABNORMAL LYMPHS % (MANUAL) 0 %
[2023-05-05 05:21] LABS: CALCIUM 7.9 mg/dL (8.5-10.3); CREATININE 0.7 mg/dL (0.6-1.3); MAGNESIUM 1.6 mg/dL (1.7-2.3); POTASSIUM 3.2 mmol/L (3.5-4.5)
[2023-05-05 06:11] LABS: BAND NEUTROPHILS % (MANUAL) 4 %; EOSINOPHILS # (MANUAL) 0.9 10^3/uL (0-0.7); LYMPHOCYTES # (MANUAL) 1.7 10^3/uL (1.5-3.5); LYMPHOCYTES % (MANUAL) 9 %; MONOCYTES # (MANUAL) 1.7 10^3/uL (0.0-1.0); NEUTROPHILS # (MANUAL) 14.4 10^3/uL (1.5-6.6); PLATELET ESTIMATE, MANUAL NORMAL (130-450,000) (NORMAL); RBC MORPHOLOGY (MULTIPLE) NORMAL APPEARANCE (NORMAL)
[2023-05-05 06:13] LABS: DIFFERENTIAL COMMENT MANUAL DIFFERENTIAL; WBC MORPHOLOGY (MULTIPLE) 1+ TOXIC GRANULATION (NORMAL)
[2023-05-05] MEDS: FLUTICASONE NASAL SPRAY NAS SCH (08:40)
[2023-05-05] MEDS: MULTIVITAMIN W/MINERALS TABLET PO SCH (08:41)
[2023-05-05] MEDS: CETIRIZINE 10 MG TABLET PO SCH (08:41)
[2023-05-05] MEDS: SACCHAROMYCES BOULARDII 250 MG CAPSULE PO SCH (08:41)
[2023-05-05] MEDS ORDERED: IRON PO SCH (09:00)
[2023-05-05] MEDS ORDERED: MULTIVITAMIN PO SCH (09:00)
[2023-05-05] MEDS ORDERED: FOLIC ACID PO SCH (09:00)
--- NOTE | 2023-05-05 11:40 | PROVIDER PROGRESS NOTE ---
Assessment/Plan - Problem List (1) C. difficile diarrhea Assessment/Plan: This is the likely cause of the new fever and elevated WBC, rather than failed treatment of her UTI She presented dehydrated on exam and by labs, had pre-renal azotemia Plan: Contact isolation to cont Cont Vanco 125 mg po QID iv fluids to keep up with her fluid losses from diarrhea Cont bowel rest with a clear liquid diet Cont probiotics Follow WBC daily Pain meds if needed (2) Urinary tract infection Conclusion/Plan: Plan: We will continue treatment with antibiotics, but antibx changed (see #3) If new dysuria develops she will need repeat W/U (3) Infection due to ESBL-producing Escherichia coli Conclusion/Plan: She had been on a strong antibx, and was on 2 other antibx before Ertepenam, likely causing the C diff bacterial overgrowth. She had finished 5 days of a 7-day course planned, using Ertepenam at 1 gm im daily Plan: Based on the sensitivities of that Ecoli, and her many antibx allergies, we will use iv Meropenam TID (discussed with Pharmacist Rubén today) Cont probiotics I updated pt re this plan (4) Electrolyte abnormality Conclusion/Plan: Today her labs show low potassium, low phosphorus, low magnesium. These are likely all to be from losses in her massive diarrhea Plan: Replace her K, Phos and mag Follow electrolytes and Phos and mag and calcium daily (5) Asthma Conclusion/Plan: Plan: Cont her usual allergy and asthma meds (6) Hx of essential hypertension Conclusion/Plan: Plan: While she is needing fluids replaced, due to losses from diarrhea, her HCTZ BP me will be on hold Another po BP med or prn Hydralazine iv can be used if BP rises - Current Meds Current Meds: Current Medications Generic Name Dose Route Start Last Admin Trade Name Freq PRN Reason Stop Dose Admin Acetaminophen 650 mg 05/04/23 14:14 05/04/23 18:38 Acetaminophen 325 Mg Tablet PO 650 mg Q4HR PRN Administration Pain 1 to 4, or Fever Cetirizine HCl 10 mg 05/05/23 09:00 05/05/23 08:41 Cetirizine 10 Mg Tablet PO 10 mg DAILY SYLVESTER Administration Famotidine 20 mg 05/04/23 21:00 05/04/23 20:54 Famotidine 20 Mg/2 Ml Vial IVP 20 mg BID SYLVESTER Administration Fluticasone Propionate 2 sprays 05/05/23 09:00 05/05/23 08:40 Fluticasone Nasal [place] SHANI 1 sprays DAILY SYLVESTER Administration Sodium Chloride 1,000 mls @ 100 mls/hr 05/04/23 15:00 05/05/23 04:28 Normal Saline 0.9% IV 100 mls/hr .Q10H SYLVESTER Administration Multivitamins/Minerals 1 tab 05/05/23 08:00 05/05/23 08:41 Multivitamin W/Minerals Tablet PO 1 tab DAILYWM SYLVESTER Administration Saccharomyces Boulardii 500 mg 05/05/23 08:00 05/05/23 08:41 Saccharomyces Boulardii 250 Mg Capsule PO 500 mg BIDWM SYLVESTER Administration Sodium Chloride 10 ml 05/04/23 17:00 05/05/23 04:08 Sodium Chloride Flush 0.9% 10 Ml Syringe IVP 10 ml 0100,0900,1700 SYLVESTER Administration Vancomycin HCl 125 mg 05/04/23 17:00 05/05/23 08:41 Vancomycin 125 Mg Capsule PO 125 mg QID SYLVESTER Administration - Lab Result Fish Bone Diagrams: 05/05/23 04:58 05/05/23 04:58 - Additional Planning My Orders: My Active Orders 05/04/23 14:14 Activity Orders [RC] Q2HR IO [RC] IOSHIFT Incentive Spirometry - RT [RC] .TID Initiate Bowel Care Protocol [RC] .protocol Initiate Line Care Protocol [RC] QSHIFT Oxygen Therapy [RC] .PRN Vital Signs [RC] Q4HR Acetaminophen [Tylenol] 650 mg PO Q4HR PRN Ondansetron Inj [Zofran Inj] 4 mg IVP Q6HR PRN Sodium Chloride Flush 0.9% [Normal Saline Flush 0.9%] 10 ml IVP PRN PRN Code Status [OTHERS] Routine Condition of Patient [OTHERS] Routine DVT Prophylaxis [OTHERS] Routine 05/04/23 14:16 Daily Weight [RC] 0600 IV Insert [RC] .ONCE 05/04/23 14:17 SCDs [RC] QSHIFT 05/04/23 14:18 Initiate Line Care Protocol [RC] QSHIFT 05/04/23 15:00 Sodium Chloride 0.9% [Normal Saline 0.9%] 1,000 ml IV 100 mls/hr 05/04/23 15:36 Infection Precautions [RC] QSHIFT 05/04/23 Dinner Clear Liquid Diet [DIET] 05/04/23 17:00 Sodium Chloride Flush 0.9% [Normal Saline Flush 0.9%] 10 ml IVP 0100,0900,1700 Vancomycin [Vancocin] 125 mg PO QID 05/04/23 21:00 Famotidine [Pepcid] 20 mg IVP BID 05/05/23 07:02 Levalbuterol [Xopenex] 1.25 mg INH RTQ4H PRN 05/05/23 08:00 Multivitamin W/Minerals [Theragran M] 1 tab PO DAILYWM Saccharomyces Boulardii [Florastor] 500 mg PO BIDWM 05/05/23 09:00 Cetirizine [ZyrTEC] 10 mg PO DAILY Fluticasone [Flonase] 2 sprays SHANI DAILY Patient Own Med 1 each SHANI BID 05/05/23 12:00 Meropenem [Merrem] 1 gm Sodium Chloride 0.9% Minibag [Normal Saline 0.9% Minibag] 100 ml IV Q8H 05/05/23 19:00 Budesonide [Pulmicort] 0.5 mg INH RTBID Formoterol Fumarate [Perforomist] 20 mcg INH RTBID 05/05/23 21:00 Montelukast [Singulair] 10 mg PO QPM 05/06/23 05:00 BMP - BASIC METABOLIC PANEL [CHEM] DAILYLAB CBC - COMP BLD CT W/AUTO DIFF [HEME] DAILYLAB 05/07/23 05:00 BMP - BASIC METABOLIC PANEL [CHEM] DAILYLAB CBC - COMP BLD CT W/AUTO DIFF [HEME] DAILYLAB 05/08/23 05:00 BMP - BASIC METABOLIC PANEL [CHEM] DAILYLAB CBC - COMP BLD CT W/AUTO DIFF [HEME] DAILYLAB Subjective - Subjective Patient Reports: Feeling Better (Volume of stool has come down to just a dribble, she reports, but is frequent and is stimulated by taking in liquids, which cause cramping) Objective Vital Signs: Vital Signs - 24 hr 05/04/23 05/04/23 05/04/23 12:30 14:00 15:40 Temperature 37.5 C 37.5 C 36.8 C Heart Rate 101 H 100 Heart Rate [ 99 Brachial] Heart Rate [ Radial] Respiratory 14 16 18 Rate Blood Pressure 137/76 H 145/78 H Blood Pressure 106/62 [Left Brachial artery] Blood Pressure [Right Radial artery] O2 Saturation 97 92 93 05/04/23 05/04/23 05/05/23 20:23 23:37 04:21 Temperature 37.0 C 37.1 C 37.0 C Heart Rate Heart Rate [ Brachial] Heart Rate [ 115 H 97 88 Radial] Respiratory 24 20 16 Rate Blood Pressure Blood Pressure [Left Brachial artery] Blood Pressure 125/72 125/62 107/56 L [Right Radial artery] O2 Saturation 95 94 95 05/05/23 09:00 Temperature 36.6 C Heart Rate Heart Rate [ Brachial] Heart Rate [ 95 Radial] Respiratory 18 Rate Blood Pressure Blood Pressure [Left Brachial artery] Blood Pressure 124/66 [Right Radial artery] O2 Saturation 94 Oxygen O2 Source Room air I&O (Last 24 Hrs): Intake and Output Totals x24h 05/03/23 05/04/23 05/05/23 23:59 23:59 23:59 Intake Total 2440 1236.667 Output Total 350 600 Balance 2090 636.667 General: Alert, Oriented x3 HEENT: EOMI, Mucous membr. moist/pink Neck: Supple, No JVD Neuro: Alert, Non Focal Cardiovascular: Regular rate Respiratory: No respiratory distress Abdomen: Soft, No tenderness Extremities: No edema, No tenderness/swelling - Results Results: Laboratory Results WBC 18.7 x10^3/uL (4.8-10.8) H 05/05/23 04:58 RBC 3.99 10^6/uL (4.20-5.40) L 05/05/23 04:58 Hgb 12.2 g/dL (12.0-16.0) 05/05/23 04:58 Hct 37.4 % (37.0-47.0) 05/05/23 04:58 MCV 93.7 fL (81.0-99.0) 05/05/23 04:58 MCH 30.6 pg (27.0-31.0) 05/05/23 04:58 MCHC 32.6 g/dL (32.0-36.0) 05/05/23 04:58 RDW 13.2 % (12.0-15.0) 05/05/23 04:58 Plt Count 200 10^3/uL (130-450) 05/05/23 04:58 MPV 9.9 fL (7.9-10.8) 05/05/23 04:58 Neut # (Auto) Not Reportable 05/05/23 04:58 Lymph # (Auto) Not Reportable 05/05/23 04:58 [place] # (Auto) Not Reportable 05/05/23 04:58 Eos # (Auto) Not Reportable 05/05/23 04:58 Baso # (Auto) Not Reportable 05/05/23 04:58 Absolute Nucleated RBC Not Reportable 05/05/23 04:58 Total Counted 100 05/05/23 04:58 Band Neuts % (Manual) 4 % (0-10) 05/05/23 04:58 Abnorm Lymph % (Manual) 0 % 05/05/23 04:58 Nucleated RBC % Not Reportable 05/05/23 04:58 Neutrophils # (Manual) 14.4 10^3/uL (1.5-6.6) H 05/05/23 04:58 Lymphocytes # (Manual) 1.7 10^3/uL (1.5-3.5) 05/05/23 04:58 Monocytes # (Manual) 1.7 10^3/uL (0.0-1.0) H 05/05/23 04:58 Eosinophils # (Manual) 0.9 10^3/uL (0-0.7) H 05/05/23 04:58 Basophils # (Manual) 0.0 10^3/uL (0-0.1) 05/05/23 04:58 Differential Comment MANUAL DIFFERENTIAL 05/05/23 04:58 Manual Slide Review Indicated 05/04/23 11:05 WBC Morphology 1+ TOXIC GRANULATION (NORMAL) 05/05/23 04:58 Platelet Estimate NORMAL (130-450,000) (NORMAL) 05/05/23 04:58 RBC Morph Micro Appear NORMAL APPEARANCE (NORMAL) 05/05/23 04:58 Sodium 135 mmol/L (135-145) 05/05/23 04:58 Potassium 3.2 mmol/L (3.5-4.5) L 05/05/23 04:58 Chloride 107 mmol/L (101-111) 05/05/23 04:58 Carbon Dioxide 22 mmol/L (21-32) 05/05/23 04:58 Anion Gap 6.0 (6-13) 05/05/23 04:58 BUN 16 mg/dL (6-20) 05/05/23 04:58 Creatinine 0.7 mg/dL (0.6-1.3) 05/05/23 04:58 Estimated GFR (MDRD) 81 (>89) L 05/05/23 04:58 Glucose 104 mg/dL (74-104) 05/05/23 04:58 Lactic Acid 0.7 mmol/L (0.5-2.2) 05/04/23 12:23 Calcium 7.9 mg/dL (8.5-10.3) L 05/05/23 04:58 Phosphorus 2.0 mg/dL (2.5-5.0) L 05/05/23 04:58 Magnesium 1.6 mg/dL (1.7-2.3) L 05/05/23 04:58 Total Bilirubin 1.1 mg/dL (0.2-1.0) H 05/04/23 11:05 AST 37 IU/L (10-42) 05/04/23 11:05 ALT 39 IU/L (10-60) 05/04/23 11:05 Alkaline Phosphatase 59 IU/L (42-121) 05/04/23 11:05 Total Protein 6.8 g/dL (6.4-8.9) 05/04/23 11:05 Albumin 2.8 g/dL (3.2-5.5) L 05/05/23 04:58 Globulin 3.3 g/dL (2.1-4.2) 05/04/23 11:05 Albumin/Globulin Ratio 1.1 (1.0-2.2) 05/04/23 11:05 Lipase 19 U/L (11-82) 05/04/23 11:05 Nasal Adenovirus (PCR) NOT DETECTED 05/04/23 11:05 Nasal B. parapertussis DNA (PCR) NOT DETECTED 05/04/23 11:05 Nasal Coronavir 229E PCR NOT DETECTED 05/04/23 11:05 Nasal Coronavir HKU1 PCR NOT DETECTED 05/04/23 11:05 Nasal Coronavir NL63 PCR NOT DETECTED 05/04/23 11:05 Nasal Coronavir OC43 PCR NOT DETECTED 05/04/23 11:05 Nasal Enterovir/Rhinovir PCR NOT DETECTED 05/04/23 11:05 Nasal Influenza B PCR NOT DETECTED 05/04/23 11:05 Nasal Influenza A PCR NOT DETECTED 05/04/23 11:05 Nasal Parainfluen 1 PCR NOT DETECTED 05/04/23 11:05 Nasal Parainfluen 2 PCR NOT DETECTED 05/04/23 11:05 Nasal Parainfluen 3 PCR NOT DETECTED 05/04/23 11:05 Nasal Parainfluen 4 PCR NOT DETECTED 05/04/23 11:05 Nasal RSV (PCR) NOT DETECTED 05/04/23 11:05 Nasal B.pertussis DNA PCR NOT DETECTED 05/04/23 11:05 Nasal C.pneumoniae (PCR) NOT DETECTED 05/04/23 11:05 Shani Human Metapneumo PCR NOT DETECTED 05/04/23 11:05 Nasal M.pneumoniae (PCR) NOT DETECTED 05/04/23 11:05 Nasal SARS-CoV-2 (PCR) NOT DETECTED 05/04/23 11:05 Stl C. diff Tox B Gene POSITIVE (NEGATIVE) A* 05/04/23 13:30
[2023-05-05] MEDS: AZELASTINE NAS SCH (11:52)
[2023-05-05] MEDS: MAGNESIUM SULFATE 2 GRAM 2 GM/50 ML BAG IV ONE (12:32)
[2023-05-05] MEDS: MEROPENEM 1 GM in SODIUM CHLORIDE 0.9% MINIBAG 100 ML IV SCH (13:41)
--- NOTE | 2023-05-05 14:25 | PHARMACY PROGRESS NOTE ---
- Best Possible Medication History Admit Date and Time: 05/04/23 1414 Processed by: Pharmacy Medication History completed: Yes Patient Interview: Pt unable to participate Secondary Source(s): Pharmacy records, Insurance records, Previous admit records As the person ultimately responsible for medication therapy, providers are able to order a medication from an existing home medication list in [facility] via the "Reconcile Routine" prior to Confirmation of that medication by integrated logistics support manager. Such practice is discouraged except when the physician, in their clinical judgment, deems that a medical need exists for a medication without regard to previous use.
[2023-05-05] MEDS: POTASSIUM PHOSPHATE 21 MMOL in SODIUM CHLORIDE 0.9% 250 ML IV ONE (14:49)
[2023-05-05] MEDS ORDERED: MIN OIL/DIMETHICON/COCONUT OIL 92 GM TUBE TOP PRN (16:21)
[2023-05-05] MEDS ORDERED: SODIUM CHLORIDE 0.9% 1,000 ML ONE (16:39)
[2023-05-05] MEDS: LEVALBUTEROL 1.25 MG/3 ML NEB INH PRN (16:45)
[2023-05-05] MEDS: ZINC OXIDE 20% OINT 30 GM TUBE TOP PRN (16:59)
[2023-05-05] MEDS: FORMOTEROL FUMARATE NEB 20 MCG/2 ML INH SCH (19:05)
[2023-05-05] MEDS: BUDESONIDE 0.5 MG/2 ML NEB INH SCH (19:05)
[2023-05-05] MEDS: MONTELUKAST 10 MG TABLET PO SCH (21:34)
[2023-05-06 05:51] LABS: BASOPHILS % (AUTO) 0.4 %; EOSINOPHILS # (AUTO) 0.2 10^3/uL (0.0-0.7); EOSINOPHILS % (AUTO) 2.3 %; HCT - HEMATOCRIT 34.1 % (37.0-47.0); HGB - HEMOGLOBIN 11.5 g/dL (12.0-16.0); LYMPHOCYTES # (AUTO) 1.4 10^3/uL (1.5-3.5); LYMPHOCYTES % (AUTO) 15.2 %; MEAN CORPUSCULAR HEMOGLOBIN 31.2 pg (27.0-31.0); MEAN CORPUSCULAR HGB CONC 33.7 g/dL (32.0-36.0); MEAN CORPUSCULAR VOLUME 92.4 fL (81.0-99.0); MEAN PLATELET VOLUME 10.3 fL (7.9-10.8); MONOCYTES # (AUTO) 0.9 10^3/uL (0.0-1.0); MONOCYTES % (AUTO) 9.7 %; NEUTROPHILS # (AUTO) 6.5 10^3/uL (1.5-6.6); NEUTROPHILS % (AUTO) 72.1 %; PLT - PLATELET COUNT 185 10^3/uL (130-450); RED BLOOD COUNT 3.69 10^6/uL (4.20-5.40)
[2023-05-06 06:22] LABS: CALCIUM 7.8 mg/dL (8.5-10.3); CREATININE 0.6 mg/dL (0.6-1.3); PHOSPHORUS 1.9 mg/dL (2.5-5.0); POTASSIUM 3.2 mmol/L (3.5-4.5)
[2023-05-06] MEDS ORDERED: SODIUM CHLORIDE 0.9% 250 ML IV ONE (09:41)
[2023-05-06] MEDS: POTASSIUM PHOSPHATE 21 MMOL in SODIUM CHLORIDE 0.9% 250 ML IV ONE (10:24)
--- NOTE | 2023-05-06 11:12 | PROVIDER PROGRESS NOTE ---
Assessment/Plan - Problem List (1) C. difficile diarrhea Assessment/Plan: This was the likely the cause of the new fever and elevated WBC, rather than failed treatment of her UTI She presented dehydrated on exam and by labs, had pre-renal azotemia. She has needed IV fluids because of her volume loss from diarrhea. She still has diarrhea but it is minimal in volume, is described as bloody occasioanally Plan: Contact isolation to cont Cont Vanco 125 mg po QID Will stop iv fluids (due to developing pedal edema) Advance her diet, without milk products Cont probiotics Follow Hgb daily and watch volume of blood in diarrhea (2) Urinary tract infection Conclusion/Plan: Plan: We will complete treatment with antibiotics, using Meropenam TID. A 7-day course was planned, so I will enter a stop time/date. (3) Infection due to ESBL-producing Escherichia coli Conclusion/Plan: She had been on daily im Ertepenam, and was on 2 other antibx before Ertepenam. She had finished 5 days of a 7-day course planned, using Ertepenam at 1 gm im daily. The antibx use likely caused the C diff infection Plan: Based on the sensitivities of that Ecoli, and her many antibx allergies, we ordered iv Meropenam TID. A 7-day course was planned, so I will enter a stop time/date. Cont probiotics (4) Leg edema She has needed IV fluids because of her volume loss in diarrhea. These iv fluids probably added to the leg edema in addition to albumin being 2.8 Plan: Stop IV fluids today, since she is hydrating orally (5) Electrolyte abnormality Conclusion/Plan: Her labs have shown low potassium, low phosphorus, low magnesium. These are likely all to be from losses in her massive diarrhea Plan: Replace any low K, Phos and mag Follow electrolytes and Phos and mag and calcium daily (6) Asthma Conclusion/Plan: Plan: Cont her usual allergy and asthma meds (7) Hx of essential hypertension Conclusion/Plan: Plan: While she is needing fluids replaced, due to losses from diarrhea, her HCTZ BP med has been on hold - Current Meds Current Meds: Current Medications Generic Name Dose Route Start Last Admin Trade Name Freq PRN Reason Stop Dose Admin Acetaminophen 650 mg 05/04/23 14:14 05/04/23 18:38 Acetaminophen 325 Mg Tablet PO 650 mg Q4HR PRN Administration Pain 1 to 4, or Fever Budesonide 0.5 mg 05/05/23 19:00 05/06/23 06:05 Budesonide 0.5 Mg/2 Ml Neb INH 0.5 mg RTBID SYLVESTER Administration Cetirizine HCl 10 mg 05/05/23 09:00 05/06/23 10:53 Cetirizine 10 Mg Tablet PO 10 mg DAILY SYLVESTER Administration Famotidine 20 mg 05/04/23 21:00 05/06/23 10:11 Famotidine 20 Mg/2 Ml Vial IVP 20 mg BID SYLVESTER Administration Fluticasone Propionate 2 sprays 05/05/23 09:00 05/06/23 10:11 Fluticasone Nasal [place] SHANI 2 sprays DAILY SYLVESTER Administration Formoterol Fumarate 20 mcg 05/05/23 19:00 05/06/23 06:05 Formoterol Fumarate Neb 20 Mcg/2 Ml INH 20 mcg RTBID SYLVESTER Administration Meropenem 1 gm/ Sodium 100 mls @ 200 mls/hr 05/05/23 12:00 05/06/23 03:45 Chloride IV 05/07/23 15:00 Infused Q8H SYLVESTER Infusion Potassium Phosphate 21 mmol/ 257 mls @ 42.833 mls/hr 05/06/23 08:46 05/06/23 10:24 Sodium Chloride IV 05/06/23 14:45 42.833 mls/hr ONCE ONE Administration Levalbuterol HCl 1.25 mg 05/05/23 07:02 05/05/23 19:05 Levalbuterol 1.25 Mg/3 Ml Neb INH 1.25 mg RTQ4H PRN Administration Wheezing Montelukast Sodium 10 mg 05/05/23 21:00 05/05/23 21:34 Montelukast 10 Mg Tablet PO 10 mg QPM SYLVESTER Administration Multi-Ingredient Ointment 1 applic 05/05/23 16:41 05/05/23 16:59 Zinc Oxide 20% Oint 30 Gm Tube TOP 1 applic PRN PRN Administration Skin Care Multivitamins/Minerals 1 tab 05/05/23 08:00 05/06/23 10:12 Multivitamin W/Minerals Tablet PO 1 tab DAILYWM SYLVESTER Administration Patient Own Med ( 1 each 05/05/23 09:00 05/06/23 10:12 Azelastine Hcl 205.5 SHANI 1 each Mcg/0.137 Ml) BID SYLVESTER Administration Saccharomyces Boulardii 500 mg 05/05/23 08:00 05/06/23 10:12 Saccharomyces Boulardii 250 Mg Capsule PO 500 mg BIDWM SYLVESTER Administration Sodium Chloride 10 ml 05/04/23 17:00 05/06/23 10:15 Sodium Chloride Flush 0.9% 10 Ml Syringe IVP 10 ml 0100,0900,1700 SYLVESTER Administration Vancomycin HCl 125 mg 05/04/23 17:00 05/06/23 10:12 Vancomycin 125 Mg Capsule PO 125 mg QID SYLVESTER Administration - Lab Result Fish Bone Diagrams: 05/07/23 05:56 05/07/23 05:56 - Additional Planning My Orders: My Active Orders 05/05/23 12:00 Meropenem [Merrem] 1 gm Sodium Chloride 0.9% Minibag [Normal Saline 0.9% Minibag] 100 ml IV Q8H 05/05/23 16:21 Min Oil/Dimeth/Coconut Oil Crm [Cavilon] 1 applic TOP PRN PRN 05/05/23 16:41 Zinc Oxide 20% Oint [Zinc Oxide] 1 applic TOP PRN PRN 05/05/23 17:12 RT [Nebulizer/MDI Tx.] [RC] .bid& prn 05/05/23 19:00 Budesonide [Pulmicort] 0.5 mg INH RTBID Formoterol Fumarate [Perforomist] 20 mcg INH RTBID 05/05/23 21:00 Montelukast [Singulair] 10 mg PO QPM 05/06/23 08:46 Potassium Phosphate 21 mmol Sodium Chloride 0.9% [Normal Saline 0.9%] 250 ml IV ONCE 05/06/23 Lunch DIET [Dysphagia - Puree] [DIET] 05/06/23 Dinner DIET [Dysphagia - Minced and Moist] [DIET] 05/07/23 05:00 BMP - BASIC METABOLIC PANEL [CHEM] DAILYLAB CALCIUM [CHEM] DAILYLAB CBC - COMP BLD CT W/AUTO DIFF [HEME] DAILYLAB MAGNESIUM [CHEM] DAILYLAB PHOSPHORUS [CHEM] DAILYLAB 05/08/23 05:00 BMP - BASIC METABOLIC PANEL [CHEM] DAILYLAB CBC - COMP BLD CT W/AUTO DIFF [HEME] DAILYLAB MAGNESIUM [CHEM] DAILYLAB PHOSPHORUS [CHEM] DAILYLAB 05/09/23 05:00 MAGNESIUM [CHEM] DAILYLAB PHOSPHORUS [CHEM] DAILYLAB Subjective - Subjective Patient Reports: Other (New swelling of the top of her feet. Decreased diarrhea volume but occasionally still bloody. No more cramping after taking in oral liquids.) Objective Vital Signs: Vital Signs - 24 hr 05/05/23 05/05/23 05/05/23 13:00 16:01 16:30 Temperature 36.6 C 36.6 C Heart Rate 84 Heart Rate [ 83 80 Radial] Respiratory 18 18 18 Rate Blood Pressure 115/60 [Left Radial artery] Blood Pressure 126/68 [Right Radial artery] O2 Saturation 92 96 05/05/23 05/05/23 05/05/23 19:05 19:43 23:47 Temperature 36.7 C 36.6 C Heart Rate 80 Heart Rate [ 92 79 Radial] Respiratory 18 18 18 Rate Blood Pressure 117/68 117/69 [Left Radial artery] Blood Pressure [Right Radial artery] O2 Saturation 95 94 05/06/23 05/06/23 05/06/23 03:52 06:05 08:28 Temperature 36.7 C 36.5 C Heart Rate 76 Heart Rate [ 75 78 Radial] Respiratory 18 18 18 Rate Blood Pressure 105/56 L 129/73 [Left Radial artery] Blood Pressure [Right Radial artery] O2 Saturation 95 96 Oxygen O2 Source Room air I&O (Last 24 Hrs): Intake and Output Totals x24h 05/04/23 05/05/23 05/06/23 23:59 23:59 23:59 Intake Total 2440 3223.667 1340 Output Total 350 600 Balance 2090 2623.667 1340 General: Alert, Oriented x3 HEENT: Mucous membr. moist/pink, Other (Disheveled) Neck: Supple, No JVD Neuro: Alert, Non Focal Cardiovascular: Regular rate, No murmurs Respiratory: No respiratory distress, Breath sounds nml Abdomen: Normal bowel sounds, Soft, No tenderness, Other (Obese) Extremities: No tenderness/swelling, Other (1+ pedal edema) - Results Results: Laboratory Results WBC 9.0 x10^3/uL (4.8-10.8) 05/06/23 05:44 RBC 3.69 10^6/uL (4.20-5.40) L 05/06/23 05:44 Hgb 11.5 g/dL (12.0-16.0) L 05/06/23 05:44 Hct 34.1 % (37.0-47.0) L 05/06/23 05:44 MCV 92.4 fL (81.0-99.0) 05/06/23 05:44 MCH 31.2 pg (27.0-31.0) H 05/06/23 05:44 MCHC 33.7 g/dL (32.0-36.0) 05/06/23 05:44 RDW 13.0 % (12.0-15.0) 05/06/23 05:44 Plt Count 185 10^3/uL (130-450) 05/06/23 05:44 MPV 10.3 fL (7.9-10.8) 05/06/23 05:44 Neut # (Auto) 6.5 10^3/uL (1.5-6.6) 05/06/23 05:44 Lymph # (Auto) 1.4 10^3/uL (1.5-3.5) L 05/06/23 05:44 [place] # (Auto) 0.9 10^3/uL (0.0-1.0) 05/06/23 05:44 Eos # (Auto) 0.2 10^3/uL (0.0-0.7) 05/06/23 05:44 Baso # (Auto) 0.0 10^3/uL (0.0-0.1) 05/06/23 05:44 Absolute Nucleated RBC 0.00 x10^3/uL 05/06/23 05:44 Total Counted 100 05/05/23 04:58 Band Neuts % (Manual) 4 % (0-10) 05/05/23 04:58 Abnorm Lymph % (Manual) 0 % 05/05/23 04:58 Nucleated RBC % 0.0 /100WBC 05/06/23 05:44 Neutrophils # (Manual) 14.4 10^3/uL (1.5-6.6) H 05/05/23 04:58 Lymphocytes # (Manual) 1.7 10^3/uL (1.5-3.5) 05/05/23 04:58 Monocytes # (Manual) 1.7 10^3/uL (0.0-1.0) H 05/05/23 04:58 Eosinophils # (Manual) 0.9 10^3/uL (0-0.7) H 05/05/23 04:58 Basophils # (Manual) 0.0 10^3/uL (0-0.1) 05/05/23 04:58 Differential Comment MANUAL DIFFERENTIAL 05/05/23 04:58 Manual Slide Review Indicated 05/04/23 11:05 WBC Morphology 1+ TOXIC GRANULATION (NORMAL) 05/05/23 04:58 Platelet Estimate NORMAL (130-450,000) (NORMAL) 05/05/23 04:58 RBC Morph Micro Appear NORMAL APPEARANCE (NORMAL) 05/05/23 04:58 Sodium 141 mmol/L (135-145) 05/06/23 05:44 Potassium 3.2 mmol/L (3.5-4.5) L 05/06/23 05:44 Chloride 115 mmol/L (101-111) H 05/06/23 05:44 Carbon Dioxide 21 mmol/L (21-32) 05/06/23 05:44 Anion Gap 5.0 (6-13) L 05/06/23 05:44 BUN 8 mg/dL (6-20) 05/06/23 05:44 Creatinine 0.6 mg/dL (0.6-1.3) 05/06/23 05:44 Estimated GFR (MDRD) 97 (>89) 05/06/23 05:44 Glucose 76 mg/dL (74-104) 05/06/23 05:44 Lactic Acid 0.7 mmol/L (0.5-2.2) 05/04/23 12:23 Calcium 7.8 mg/dL (8.5-10.3) L 05/06/23 05:44 Phosphorus 1.9 mg/dL (2.5-5.0) L 05/06/23 05:44 Magnesium 2.0 mg/dL (1.7-2.3) 05/06/23 05:44 Total Bilirubin 1.1 mg/dL (0.2-1.0) H 05/04/23 11:05 AST 37 IU/L (10-42) 05/04/23 11:05 ALT 39 IU/L (10-60) 05/04/23 11:05 Alkaline Phosphatase 59 IU/L (42-121) 05/04/23 11:05 Total Protein 6.8 g/dL (6.4-8.9) 05/04/23 11:05 Albumin 2.8 g/dL (3.2-5.5) L 05/05/23 04:58 Globulin 3.3 g/dL (2.1-4.2) 05/04/23 11:05 Albumin/Globulin Ratio 1.1 (1.0-2.2) 05/04/23 11:05 Lipase 19 U/L (11-82) 05/04/23 11:05 Nasal Adenovirus (PCR) NOT DETECTED 05/04/23 11:05 Nasal B. parapertussis DNA (PCR) NOT DETECTED 05/04/23 11:05 Nasal Coronavir 229E PCR NOT DETECTED 05/04/23 11:05 Nasal Coronavir HKU1 PCR NOT DETECTED 05/04/23 11:05 Nasal Coronavir NL63 PCR NOT DETECTED 05/04/23 11:05 Nasal Coronavir OC43 PCR NOT DETECTED 05/04/23 11:05 Nasal Enterovir/Rhinovir PCR NOT DETECTED 05/04/23 11:05 Nasal Influenza B PCR NOT DETECTED 05/04/23 11:05 Nasal Influenza A PCR NOT DETECTED 05/04/23 11:05 Nasal Parainfluen 1 PCR NOT DETECTED 05/04/23 11:05 Nasal Parainfluen 2 PCR NOT DETECTED 05/04/23 11:05 Nasal Parainfluen 3 PCR NOT DETECTED 05/04/23 11:05 Nasal Parainfluen 4 PCR NOT DETECTED 05/04/23 11:05 Nasal RSV (PCR) NOT DETECTED 05/04/23 11:05 Nasal B.pertussis DNA PCR NOT DETECTED 05/04/23 11:05 Nasal C.pneumoniae (PCR) NOT DETECTED 05/04/23 11:05 Shani Human Metapneumo PCR NOT DETECTED 05/04/23 11:05 Nasal M.pneumoniae (PCR) NOT DETECTED 05/04/23 11:05 Nasal SARS-CoV-2 (PCR) NOT DETECTED 05/04/23 11:05 Stl C. diff Tox B Gene POSITIVE (NEGATIVE) A* 05/04/23 13:30
[2023-05-07] MEDS: SODIUM CHLORIDE FLUSH 0.9% 10 ML SYRINGE IVP PRN (04:40)
[2023-05-07 06:02] LABS: BASOPHILS % (AUTO) 0.8 %; EOSINOPHILS # (AUTO) 0.3 10^3/uL (0.0-0.7); HCT - HEMATOCRIT 33.8 % (37.0-47.0); HGB - HEMOGLOBIN 11.3 g/dL (12.0-16.0); LYMPHOCYTES # (AUTO) 1.1 10^3/uL (1.5-3.5); LYMPHOCYTES % (AUTO) 23.5 %; MEAN CORPUSCULAR HEMOGLOBIN 30.6 pg (27.0-31.0); MEAN CORPUSCULAR HGB CONC 33.4 g/dL (32.0-36.0); MEAN CORPUSCULAR VOLUME 91.6 fL (81.0-99.0); MEAN PLATELET VOLUME 10.1 fL (7.9-10.8); MONOCYTES # (AUTO) 0.6 10^3/uL (0.0-1.0); MONOCYTES % (AUTO) 12.3 %; NEUTROPHILS # (AUTO) 2.8 10^3/uL (1.5-6.6); PLT - PLATELET COUNT 218 10^3/uL (130-450); RED BLOOD COUNT 3.69 10^6/uL (4.20-5.40); RED CELL DISTRIBUTION WIDTH 13.1 % (12.0-15.0); WHITE BLOOD COUNT 4.9 x10^3/uL (4.8-10.8)
[2023-05-07 06:21] LABS: CREATININE 0.6 mg/dL (0.6-1.3); MAGNESIUM 1.8 mg/dL (1.7-2.3); PHOSPHORUS 2.5 mg/dL (2.5-5.0); POTASSIUM 3.7 mmol/L (3.5-4.5)
[2023-05-07 13:28] VITALS: BP 132/69; O2SAT 99
--- NOTE | 2023-05-07 13:47 | Discharge Plan ---
Discharge Plan Problem Reviewed?: Yes Disposition: Home, Self Care Condition: Stable Prescriptions: Saccharomyces Boulardii [Florastor] 500 mg PO BID #15 cap Vancomycin [Vancocin] 125 mg PO QID #30 cap Diet: Soft (Please eat a soft, easily digestible diet, low in fiber, for about the next 4 to 6 days; this is easier for the colon to handle.) Activity Restrictions: Activity as Tolerated Shower Restrictions: No Driving Restrictions: No Instruction Topics: Clostridium Difficile Infec Health Concerns: You were hospitalized with a fever, weakness and watery diarrhea. We found that this was a C. difficile colon infection. You were put on oral Vancomycin antibiotic, iv fluids, an easily digestible diet, and have improved. You are tolerating a diet and are being discharged home. A prescription for 7 and a half more days of Vancomycin, plus a twice a day probiotic capsule, have been prescribed for you to take after discharge. These prescriptions were electronically sent to your [facility] pharmacy in [place]. (I decided to change the once daily Lactobacillus probiotic you have, to this Florastor twice a day capsule probiotic). You may resume all your other usual pre-hospital medications. You finished your treatment for the urinary tract infection while you were here, so no more intramuscular antibiotics at the [facility] clinic are needed. Please eat an easily digestible diet for the next few days, and stay well- hydrated. Please have a hospital follow-up visit with your primary care provider in the next 1 to 2 weeks. Plan of Treatment: As above. Care Goals: Improvement in symptoms and stabilization are the goals. Assessment: The patient understands and is agreeable with the plan. Additional Instructions or Follow Up instructions: If you have any new or worsening symptoms, call your primary care provider for advice, or come to the ER. No Smoking: If you smoke, Please STOP! Call for help. Follow-up with: Jennifer Jackson MD [Provider Admit Priv/Credential] -
--- NOTE | 2023-05-07 13:59 | DISCHARGE SUMMARY ---
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 She gets frequent UTIs. She was seen at a clinic about week ago with her typical c/o dysuria, and was prescribed Bactrim. The bacteria was not sensitive to that antibx which was then changed to Nitrofurantoin. The final urine culture returned showing ESBL- producing E coli, and she was given Ertepenam. Then she had arrangements made to get daily im Ertepenam in the [facility]. Her dysuria did resolve. Two days into the Ertepenam course (3 days ago), she started to have diarrhea, then weakness, and slept all day, had a poor appetite only drinking liquids, and the diarrhea became more liquidy. Then she had voluminous watery diarrhea, mixed with blood, became dizzy with standing and spiked a fever, and she presented to the ER. She did get today's Ertepenam im dose while in the ER. She was febrile to 100.2 F, tachycardic, and had WBC elevated at 19.2 with a Left shift, normal Lactic Acid, BUN/creat 23/0.9, Na 132, otherwise normal electrolytes. The ER provider then spoke to me to admit this patient for treating weakness from dehydration due to voluminous diarrhea and/or failed out patient treatment for the ESBL-producing E coli UTI. She had a CXR that was read as having mild bilateral patchy opacities and she had an abd/pelvis CT that showed fat stranding of the transverse and descending colon, and diverticuli of the descending and sigmoid colon, no hydronephrosis or mass, and gallstones seen in a contracted gallbladder. A stool sample for c. diff came back (+). I spoke to her about her CODE BLUE wishes and she wants to be a Full Code. - HOSPITAL COURSE Hospital Course: (1) C. difficile diarrhea This was the likely the cause of the new fever and elevated WBC, rather than failed treatment of the UTI. She presented dehydrated on exam and by labs, had pre-renal azotemia. She received IV fluids and was put on a clear liquid diet and got po Vancomycin. Her diarrhea improved and she was discharged to finish a 10-day course of Vanco po plus probiotics po. (2) Urinary tract infection We completed that treatment using Meropenam (3) Infection due to ESBL-producing Escherichia coli She was on 2 other antibx before getting Ertepenam. She had finished 5 days, of a 7-day planned course of Ertepenam 1 gm im daily. The antibiotics use likely caused the C diff infection. We had her on iv Meropenam TID, and she completed the entire 7-day planned course while here. (4) Leg edema She developed mild foot edema after receiving IV fluids. IV fluids weree then stopped since she was hydrating orally (5) Electrolyte abnormality Her labs showed low potassium, low phosphorus, low magnesium. Likely low from losses in her diarrhea. They were replaced (6) Asthma We continued her usual allergy and asthma meds (7) Hx of essential hypertension While she was needing fluids replaced, due to losses from diarrhea, her HCTZ BP med was on hold. - ALLERGIES Allergies/Adverse Reactions: Allergies Allergy/AdvReac Type Severity Reaction Status Date / Time cephalexin [From Keflex] Allergy Anaphylaxis Verified 05/04/23 10:42 glecaprevir [From Mavyret] Allergy Rash Verified 05/04/23 11:27 levofloxacin Allergy Cramps Verified 05/04/23 10:42 Penicillins Allergy Rash Verified 05/04/23 10:42 pibrentasvir [From Mavyret] Allergy Rash Verified 05/04/23 11:27 - MEDICATIONS Home Medications: Ambulatory Orders Medication Instructions Recorded Confirmed Azelastine HCl [Astepro] 1 spray SHANI BID 08/07/12 05/05/23 Fluticasone Furoate [Veramyst] 1 spray SHANI BID 08/07/12 05/05/23 Montelukast [Singulair] 10 mg PO QPM 08/24/20 05/04/23 Multivitamin/Iron/Folic Acid 1 each PO DAILY 08/24/20 05/04/23 [Centrum Women Tablet] Cetirizine [ZyrTEC] 10 mg PO DAILY 01/24/23 05/04/23 Levalbuterol [Xopenex] 1 puffs INH Q4-6H PRN 01/24/23 05/04/23 Pantoprazole Sodium 20 mg PO DAILY 01/24/23 05/04/23 hydroCHLOROthiazide [Hydrodiuril] 25 mg PO DAILY 05/04/23 05/04/23 Fluticasone/Salmeterol [Advair Hfa 2 puffs INH BID 05/05/23 05/05/23 230-21 Mcg Inhaler] Saccharomyces Boulardii [Florastor] 500 mg PO BID #15 cap 05/07/23 Vancomycin [Vancocin] 125 mg PO QID #30 cap 05/07/23 - PHYSICAL EXAM AT DISCHARGE General Appearance: positive: No acute distress, Alert Eyes Bilateral: positive: Normal inspection, EOMI ENT: positive: ENT inspection nml, No signs of dehydration Neck: positive: Nml inspection, No JVD Respiratory: positive: No respiratory distress, Breath sounds nml Cardiovascular: positive: Regular rate & rhythm, No murmur Abdomen: positive: Non-tender, No organomegaly, No distention, Other (Hyperactive bowel sounds) Skin: positive: Warm, Dry Extremities: positive: Non-tender, No pedal edema Neurologic/Psychiatric: positive: Oriented x3, CN's nml (2-12), Motor nml - LABS Result Diagrams: 05/07/23 05:56 05/07/23 05:56 - DIAGNOSTIC IMAGING Diagnostic Imaging Results: Final report reviewed - FOLLOW UP Follow Up: See PCP for a hospital F/U visit. - TIME SPENT Time Spent in Discharge (Minutes): 45
== END 2023-05-07 14:10 | disposition home or self-care (01) | DRG 372 ==
LOC: ED 10:04 → EEVIPCON 10:04 → MS2 14:14
PROVIDERS: ADMIT Internal Medicine; ATTEND Internal Medicine
DX: N12 Tubulo-interstitial nephritis, not specified as acute or chronic (principal); R50.9 Fever, unspecified; R19.7 Diarrhea, unspecified; A04.72 Enterocolitis due to Clostridium difficile, not specified as recurrent; Z11.52 Encounter for screening for COVID-19; N39.0 Urinary tract infection, site not specified; B96.29 Other Escherichia coli [E. coli] as the cause of diseases classified elsewhere; R60.0 Localized edema; E87.8 Other disorders of electrolyte and fluid balance, not elsewhere classified; J45.909 Unspecified asthma, uncomplicated; I10 Essential (primary) hypertension; B19.20 Unspecified viral hepatitis C without hepatic coma; E86.0 Dehydration; R00.0 Tachycardia, unspecified; R79.89 Other specified abnormal findings of blood chemistry
CPT/HCPCS: 36415; 71045; 74176; 80048; 80053; 82040; 83605; 83690; 83735; 84100; 85025; 87040; 87045; 87046; 87427; 87493; 87633; 94640; 96372; 96374; 99285; A9270; J1335; J2185; J7626; J8499

== ENCOUNTER 2023-06-13 09:46 | Outpatient (CLI) | payer MEDICARE, OTHER ==
--- NOTE | 2023-06-13 10:13 | XRAY Report ---
PROCEDURE: Chest 2V INDICATIONS: ASTHMA TECHNIQUE: 2 views of the chest were acquired. COMPARISON: 05/04/2023. FINDINGS: Surgical changes and devices: None. Lungs and pleura: No pleural effusions or pneumothorax. Lungs are clear. Mediastinum: Mediastinal contours appear normal. Heart size is normal. Bones and chest wall: No suspicious bony lesions. Overlying soft tissues appear unremarkable. IMPRESSION: No acute cardiopulmonary process. Reviewed by: Lenard Lugo MD on 06/13/2023 10:12 AM PDT Approved by: Lenard Lugo MD on 06/13/2023 10:12 AM PDT Station ID: [id number]
== END 2023-06-13 09:47 | disposition home or self-care (01) ==
LOC: DI 09:46
PROVIDERS: ATTEND Allergy & Immunology
DX: J45.40 Moderate persistent asthma, uncomplicated (principal)

== ENCOUNTER 2023-07-03 10:46 | Outpatient (CLI) | payer MEDICARE, OTHER ==
[2023-07-03] MEDS ORDERED: iohexoL-300 100 ML VIAL ONE (11:08)
[2023-07-03 11:14] LABS: CREATININE 0.8 mg/dL (0.6-1.3)
--- NOTE | 2023-07-03 13:22 | CT Report ---
PROCEDURE: Chest W INDICATIONS: PNEUMOTHORAX CONTRAST: Omnipaque 300 100ml TECHNIQUE: After the administration of intravenous contrast, a CT scan of the chest was performed. Images were recorded and evaluated at appropriate window settings. Reformats: axial MIP of the chest, coronal and sagittal. For radiation dose reduction, the following was used: automated exposure control, adjustme nt of mA and/or kV according to patient size. COMPARISON: CT chest 05/28/2023, 01/13/2023 FINDINGS: Image quality: Diagnostic. Chest wall and lower neck: No thyroid nodule which requires sonographic follow up. No axillary or sup raclavicular adenopathy by size. Lungs and pleura: Right lower lobe consolidation is nearly resolved, () No pleural effusions. No pneumothorax. No mass or significant pulmonary nodules. Right lower lobe superior segment pulmonary n odule measuring 0.3 cm, (40), unchanged since at least 2022. Mediastinum: Heart size is normal. No pericardial effusion. No large vessel abnormality. No mediastin al adenopathy by size criteria. Bones: No aggressive osseous abnormality. Advanced DDD at C6-C7. Upper Abdomen: Diverticulosis.. IMPRESSION: Right lower lobe pneumonia is nearly resolved. No mass or significant pulmonary nodules. No adenopathy. No pneumothorax. Reviewed by: Todd Prieto MD on 07/03/2023 1:21 PM PDT Approved by: Todd Prieto MD on 07/03/2023 1:21 PM PDT Station ID: [id number]
[2023-07-03] MEDS: iohexoL-300 100 ML VIAL IVP ONE (14:53)
== END 2023-07-03 10:47 | disposition home or self-care (01) ==
LOC: LAB 10:46
PROVIDERS: ATTEND Internal Medicine
DX: J18.9 Pneumonia, unspecified organism (principal); Z79.899 Other long term (current) drug therapy
CPT/HCPCS: 36415; 71260; 82565; Q9967